=== PATIENT | male | born 1950 | race African-American/Black ===

== ENCOUNTER 2019-01-24 00:39 | Inpatient (IN) | payer OTHER ==
[~2019-01-24] VITALS: Ht 152.4 cm; Wt 67.2 kg
--- NOTE | 2019-01-24 00:49 | NUR ---
PT PLACED IN TRENDELENBERG AT THIS TIME FOR INCREASED CEREBRAL PERFUSION
--- NOTE | 2019-01-24 00:50 | NUR ---
PT PRESENTS TO ED WITH [facility] FROM [facility] FOR C/O HYPOGLYCEMIA. PER [facility] PT WAS FOUND AT FACILITY WITH BLOOD SUGAR OF 39 AFTER ONE GLUCAGON TX TRIPE FINISHER. [facility] PROVIDED 1 AMP D5 AND PT BLOOD GLUCOSE INCREASED TO 99. PER [facility] WITH INCREASE IN SUGAR THERE WAS NO CHANGE IN PT ORIENTATION. PT UPON ARRIVAL IS GCS OF 9 AND IS MUTE. PT HAS RAPID EYE MOVEMENT WITH NO VERBAL RESPONSE. PT HAS PUPILS THAT ARE REACTIVE. PT LUNG SOUNDS ARE DIMINISHED IN ALL [place] WITH NO COUGH. PT ABD IS ROUND AND FIRM UPON PALPATION. BOWEL SOUND HEARD IN ALL 4 QUADRANTS. PT PT HAS BL BKA FROM HX OF DIABETES. PT ALSO HAS DIAPER UPON ARRIVAL. SKIN IS DRY AND INTACT EXCEPT FOR WOUND TO COCCYX AREA THAT IS COVERED AT THIS TIME. PER [facility] THE AFIB IS NOT IN PT HX AND COULD POTENTIALLY BE NEW ONSET. PT ABLE TO MOVE ALL EXTREMETIES HOWEVER APPEARS LETHARGIC AND WEAK AT THIS TIME. PT CONNECTED TO FULL CM AND PULSE OX MONITORS. AWAITING MSE AT THIS TIME. PT IN FULL VIEW OF THE NURSES STATION.
--- NOTE | 2019-01-24 00:55 | NUR ---
DIALYSIS SHUNT NOTED TO PT R UPPER ARM
--- NOTE | 2019-01-24 01:01 | NUR ---
MD ISLAS AWAR OF PT CURRENT BP
--- NOTE | 2019-01-24 01:05 | NUR ---
AWARE PT MEETS SEPTIC PROTOCOL AT THIS TIME
--- NOTE | 2019-01-24 01:11 | NUR ---
BP PLACED ON R UPPER THIGH TO CHECK FOR ACCURACY. PT HAS RESTRICTED EXTREMITY TO R UPPER ARM DUE TO SHUNT PLACEMENT
--- NOTE | 2019-01-24 01:20 | NUR ---
MD AWARE OF PT CURRENT BP NO NEW ORDERS AT THIS TIME. FIRST LITER OF NS CURRENTLY INFUSING
--- NOTE | 2019-01-24 01:21 | NUR ---
LAB AT BEDSIDE FOR BLOOD DRAW
--- NOTE | 2019-01-24 01:50 | NUR ---
AT BEDSIDE AT THIS TIME
--- NOTE | 2019-01-24 01:51 | NUR ---
PT STATES THAT PT IS USUALLY AXO X4. PER PT USUALLY IS ABLE TO HOLD A CONVERSATION WITH HER HOWEVER WHILE SHE WAS WITH HIM AT [facility] SHE NOTICED THAT HE WAS WEAK AND SLOW TO RESPOND AND THAT IS WHY SHE TOLD THE NURSES TO GET HELP. STATES PT HAS NO CARDIAC HX EXCEPT CVA WITH R SIDED DEFICITS. PT STATES HE RECEIVED DIALYSIS ON TUESDAY AND EVERYTHING WENT NORMAL PER
--- NOTE | 2019-01-24 01:53 | NUR ---
PER MD ISLAS GIVE ZOFRAN 5 MIN PRIOR TO GIVING GLUCAGON FOR POTENTIAL ADVERSE REACTION OF VOMITING INDUCED BY GLUCAGON MD ISLAS STATES GIVING 2AMPS OF GLUCOAGON FOR POTENTIAL REVERSAL OF METOPROLOL OD
--- NOTE | 2019-01-24 01:55 | NUR ---
PER PT STILL MAKES SOME URINE AND VOIDS ON OCCASION HOWEVER VERY MINIMAL AND DECREASED
--- NOTE | 2019-01-24 01:58 | NUR ---
BLADDER SCANNER USED TO ASSESS AMOUNT OF URINE IN BLADDER PRIOR TO STRAIGHT CATH. BLADDER SCAN CURRENTLY REVEALED OVER 200 ML OF URINE IN BLADDER. PRIMARY RN AND MD AWARE.
[2019-01-24 02:00] LABS: PLATELET COUNT 192 x10^3mcL (130-400)
[2019-01-24 02:03] LABS: CALCIUM 7.7 mg/dL (8.5-10.1); CARBON DIOXIDE 21.9 mmol/L (21-32); POTASSIUM SERUM 3.2 mmol/L (3.5-5.1)
--- NOTE | 2019-01-24 02:05 | NUR ---
AWARE OF LATEST BP. NEW ORDERS RECEIVED SEE EMAR
[2019-01-24 02:07] LABS: BILIRUBIN TOTAL 3.6 mg/dL (0.20-1.00); TOTAL PROTEIN, SERUM 6.2 g/dL (6.4-8.2)
[2019-01-24 02:10] LABS: ALBUMIN 1.3 g/dL (3.4-5.0)
[2019-01-24 02:13] LABS: RED CELL DISTRIBUTION WIDTH 20.2 % (11.5-14.5)
--- NOTE | 2019-01-24 02:22 | NUR ---
PT APPEARS TO BE MORE ARROUSABLE AND RESPONDS WITH EYE MOVEMENT TO VERBAL STIMULI AND IS ABLE TO FOLLOW SMALL COMMANDS SUCH "PUT YOUR ARM STRAIGHT"
--- NOTE | 2019-01-24 02:25 | NUR ---
JANEL AWARE NO SECONDARY LINE ABLE TO BE ESTABLISHED AT THIS TIME. NOTIFIED NEED FOR SECONDARY LINE AND CONVERSATION WAS HAD ABOUT CENTRAL LINE OR EJ/IJ INSERTION. HOWEVER NO NEW ORDERS AT THIS TIME FOR CONTINIOUS IV ACCESS WERE STATED AT THIS TIME
[2019-01-24 02:29] LABS: BAND NEUTROPHIL 1 % (0-10); BASOPHIL 0 % (0-2); MONOCYTE 6 % (0-7); SEGMENTED NEUTROPHILS 84 % (37-75)
--- NOTE | 2019-01-24 02:29 | NUR ---
O2 TAKEN OFF PT AT THIS TIME FOR O2 SAT AT 98% RA
--- NOTE | 2019-01-24 02:30 | NUR ---
UNABLE TO DO SEPSIS FLUID RESUSCITATION DUE TO PT RENAL FAILURE AND DIALYSIS. MD AWARE.
[2019-01-24 02:32] LABS: PLATELET MORPHOLOGY PLATELETS NORMAL; rbc morphology (normal/abnorm) ABNORMAL (NORMAL)
[2019-01-24] MEDS ORDERED: ATORVASTATIN CA40 M1 PO (02:38)
--- NOTE | 2019-01-24 02:39 | NUR ---
REMOTE CONTROL MIRROR INSTALLER JANINE AWARE OF MD ORDERS OR LACK THERE OF
--- NOTE | 2019-01-24 02:39 | NUR ---
AWARE OF PT CURRENT BP. NO NEW ORDERS FOR CENTRAL LINE OR PRESSORS AT THIS TIME
[2019-01-24] MEDS ORDERED: HEPARIN SO5000 UNIT/ IJ (02:40)
--- NOTE | 2019-01-24 02:40 | NUR ---
PLEASE ENTER FULL NAMES OF STUDENT/RN Documentation completed by (Student Nurse): TIERA MCCULLOUGH Documentation reviewed by (Registered Nurse): KARAN CARDOSO
[2019-01-24] MEDS ORDERED: HYDRALAZINE HCL25 MG PO ×2 (02:41→02:49)
[2019-01-24] MEDS ORDERED: TOPROL XL25 MG PO (02:41)
[2019-01-24] MEDS ORDERED: MORPHINE SU2 MG/1 M1 IVP (02:42)
[2019-01-24] MEDS ORDERED: NAR4I IVP (02:43)
--- NOTE | 2019-01-24 02:43 | NUR ---
AWARE URINE IS TOO DIRTY TO READ ON MACHINE IN ER DESPITE MULTIPLE EFFORTS. URINE SENT TO LAB FOR UA AND URINE CULTURE
--- NOTE | 2019-01-24 02:43 | NUR ---
STATES TO "CONTINUE WITH ALBUMIN AND WATCH BP". AWARE PT HAS BEEN HERE FOR APPROX 2 HOURS AND THERE HAS BEEN NO IMPROVEMENT IN BP EVEN AFTER 1L OF NS COMPLETE AND ALBUMIN INFUSING
[2019-01-24] MEDS ORDERED: PROTONIX40 MG PO (02:44)
[2019-01-24] MEDS ORDERED: TYLENOL PO (02:45)
[2019-01-24] MEDS ORDERED: ZOF4 IVP (02:45)
[2019-01-24] MEDS ORDERED: AMERINET CHOICE1 PD2 IV (02:46)
--- NOTE | 2019-01-24 02:46 | NUR ---
PT SEEN TO BE USING ARMS TO SIGNAL THAT HE WANTS A PILLOW.
[2019-01-24] MEDS ORDERED: OPTIMUM AC500 Millio PO (02:47)
[2019-01-24] MEDS ORDERED: NEXIUM40 MG PO (02:48)
[2019-01-24] MEDS ORDERED: FERROUS SULFAT325 M2 PO (02:48)
[2019-01-24] MEDS ORDERED: GABAPENTIN100 M2 PO (02:49)
[2019-01-24] MEDS ORDERED: ATRNS6 INH (02:50)
--- NOTE | 2019-01-24 02:51 | NUR ---
MD STATES TO OPEN ALBUMIN AT W.O. RATE AT THIS TIME ALBUMIN W.O AT THIS TIME
[2019-01-24] MEDS ORDERED: TUMS E-X750 MG PO (02:52)
[2019-01-24] MEDS ORDERED: METOCLOPRAM5 MG/5 M1 PO (02:52)
[2019-01-24] MEDS ORDERED: RENA-VITE RX1 TAB PO (02:53)
--- NOTE | 2019-01-24 02:58 | NUR ---
ALBUMIN FINISHED AND ROCEPHIN BEGAN AT THIS TIME IN LAC IV
--- NOTE | 2019-01-24 03:07 | NUR ---
PHOTOGRAPH OF WOUND ON COCCYX PLACED IN PT CHART AT THIS TIME
--- NOTE | 2019-01-24 03:10 | NUR ---
PT CURRENT TEMP IS 96.1 RECTAL. MD AWARE AT THIS TIME
--- NOTE | 2019-01-24 03:18 | NUR ---
AWARE OF TEMP AND STATES TO PUT PT ON GAYMAR FOR THERAPEUTIC REWARMING
--- NOTE | 2019-01-24 03:18 | NUR ---
MD AT BEDSIDE FOR CENTRAL LINE INSERTION SIGNED CONSENT AND 2 RN CHECKED BY ME AND JOSELINE Lee RN PLACED IN PT CHART
--- NOTE | 2019-01-24 03:32 | NUR ---
CENTRAL LINE PLACED TO LIJ AT THIS TIME
--- NOTE | 2019-01-24 03:36 | NUR ---
X RAY AT BEDSIDE FOR CENTRAL LINE PLACEMENT CONFIRMATION
--- NOTE | 2019-01-24 03:37 | NUR ---
PT TOLERATED PROCEDURE WELL
--- NOTE | 2019-01-24 03:48 | NUR ---
CONFIRMED CENTRAL LINE PLACEMENT AND STATES OKAY TO USE AT THIS TIME
[2019-01-24 03:59] LABS: UA SPECIFIC GRAVITY 1.015 (1.005-1.035); microscopic required? YES; urine erythrocyte 3+ (NEGATIVE)
--- NOTE | 2019-01-24 04:01 | NUR ---
LEVO TITRATED UP TO 4MCG/MIN AT THIS TIME RUNNING AT 15ML/HR
--- NOTE | 2019-01-24 04:06 | NUR ---
LEVO TITRATED TO 6MCG/MIN AND 22.5ML/HR TO REACH GOAL OF MAP OF 65
--- NOTE | 2019-01-24 04:06 | NUR ---
NO CHANGE IN PT MENTATION AT THIS TIME
--- NOTE | 2019-01-24 04:06 | NUR ---
CONCESTED COUGH HEARD AT THIS TIME
--- NOTE | 2019-01-24 04:11 | NUR ---
LEVO TITRATED TO 8MCG/MIN RUNNING AT 30ML/HR. AWARE
--- NOTE | 2019-01-24 04:16 | NUR ---
LEVO TITRATED UP TO 10MCG AND 37.5ML/HR FOR PT CURRENT BP SEE VITALS
--- NOTE | 2019-01-24 04:20 | NUR ---
MD AWARE PT NEED MAINTENANCE FLUIDS TO RUN WITH LEVO AT THIS TIME
--- NOTE | 2019-01-24 04:21 | NUR ---
LEVO TITRATED TO 12MCG/MIN AT 45ML/HR FOR PT CURRENT BP
--- NOTE | 2019-01-24 04:26 | NUR ---
LEVO TITRATED TO 14MCG/MIN AND RUNNING AT 52.5ML/HR FOR GOAL OF MAP OF 65
--- NOTE | 2019-01-24 04:31 | NUR ---
LEVO TITRATED TO 16MCG AT 60ML/HR AT THIS TIME
--- NOTE | 2019-01-24 04:35 | NUR ---
WILL MAINTAIN LEVO AT 16MCG/MIN FOR MAP >65 AT THIS TIME. WILL CONTINUE TO MONITOR VITALS. GAYMAR WITH RECTAL PROBE STILL IN PLACE AT BEDSIDE PT APPEARS TO BE RESTING WITH EYES CLOSED AND E/U CHEST RISE NOTED. NAD AT THIS TIME. MD AWARE PT BP AT THIS TIME. NO NEW ORDERS
--- NOTE | 2019-01-24 05:52 | NUR ---
PT REPOSITION HIMSELF AND IS RESTING COMFORTABLY
--- NOTE | 2019-01-24 05:54 | NUR ---
RESIDENT IS CURRENTLY ASSESSING PT.
--- NOTE | 2019-01-24 06:01 | NUR ---
NO CHANGE IN PT MENTATION AT THIS TIME. PLACED PILLOWS UNDERNEATH R SIDE OF PT TO RELIEVE PRESSURE AND DECREASE RISK OF PRESSURE SORES SO PT LYING W/R SIDE IN AIR AND LEFT SIDE DOWN AT THIS TIME. STILL AT BEDSIDE. NAD AT THIS TIME
--- NOTE | 2019-01-24 06:25 | NUR ---
PER MD TO TITRATE LEVO DOWN TO SEE HOW PT TOLERATES. TITRATING LEVO DOWN TO 14MCG/MIN AT THIS TIME.
--- NOTE | 2019-01-24 06:54 | NUR ---
MD VILA AWARE PT UNABLE TO SWALLOW PO POTASSIUM AT THIS TIME. SHE STATES SHE WILL TELL ORDERING MD AND HAVE THEM FIX THE ORDER. SO PO POTASSIUM NOT GIVEN AT THIS TIME
--- NOTE | 2019-01-24 07:43 | NUR ---
REPORT GIVEN TO BILL LLAMAS. ALL QUESTIONS AND CONCERNS ADDRESSED AT THIS TIME.
--- NOTE | 2019-01-24 07:54 | NUR ---
RECEIVED THE PATIENT FROM ED VIA GUERNEY; THE PATIENT WAS TRANSFERRED TO ICU BED AND HOOKED UP TO TELE MONITOR, WHICH SHOWS AFIB WITH EPISODES OF SINUS TACHYCARDIA. THE PATIENT LETHARGIC, MOANING TO TACTILE STIMULI. CVC NOTED AT J. ANOTHER IV SITE TO LAC. AV SHUNT TO RIGHT ARM WITH BRUIT AND THRILL AND COVERED WITH DRESSING. RUQ DRAINAGE TUBE IN PLACE WITH GREEN OUTPUT IN BAG. BURGER CATH IN PLACE WITH NO URINE OUTPUT NOTED. PATIENT WITH LEFT AKA AND RIGHT BKA. PATIENT POSITIONED COMFORTABLY IN BED. HEAD OF BED ELEVATED. EXTREMITIES OFFLOADED. CALL LIGHT WITHIN REACH. SIDE RAILS UP X3. BED IS AT LOWEST POSITION. THE IS AT BEDSIDE AND PROVIDING THE PATIENT'S INFORMATION.
[2019-01-24 08:16] VITALS: BP 100/55
--- NOTE | 2019-01-24 08:35 | NUR ---
BP 118/58 AND MAP 78; LEVOPHED TITRATED FROM 14MCG/MIN DOWN TO 12MCG/MIN.
[2019-01-24 08:38] LABS: MAGNESIUM 1.6 mg/dL (1.8-2.4)
--- NOTE | 2019-01-24 08:43 | NUR ---
PATIENT'S GENEVA AT BEDSIDE ASSISTING PRIMARY RN WITH OBTAINING PATIENT INFORMATION. CONSENT SIGNED BY TO OBTAIN MEDICAL RECORDS FROM [facility] AND FOR BLOOD TRANSFUSION. BLOOD TRANSFUSION EDUCATION PROVIDED TO . ALL QUESTIONS AND CONCERNS ADDRESSED.
[2019-01-24 08:48] LABS: CHOLESTEROL/HDL RATIO 14.5
--- NOTE | 2019-01-24 09:01 | NUR ---
BP 118/60 AND MAP 79; LEVOPHED TITRATED FROM 12MCG/MIN DOWN TO 10MCG/MIN.
--- NOTE | 2019-01-24 09:35 | NUR ---
DR. HUFF IS AT BEDSIDE TO SEE THE PATIENT AND TALKING TO THE .
--- NOTE | 2019-01-24 09:46 | NUR ---
IV SITE AT LAC FOUND DISLODGED WITH TIP INTACT. THE SITE WITH NO BLEEDING. DRESSING IS IN PLACE.
--- NOTE | 2019-01-24 09:55 | NUR ---
DR HUFF AT BEDSIDE TO SPEAK WITH PATIENT'S GENEVA. POC DISCUSSED INCLUDING PATIENT'S NEED FOR ERCP AND CHOLANGIOGRAM. ALL QUESTIONS AND CONCERNS ADDRESSED BY DR HUFF. CONSENT OBTAINED AND WITNESSED BY MYSELF.
--- NOTE | 2019-01-24 10:03 | NUR ---
BP 124/62, AND MAP 75; LEVOPHED TITRATED FROM 10MCG/MIN DOWN TO 8MCG/MIN.
--- NOTE | 2019-01-24 10:46 | NUR ---
BP 124/66, MAP 79; LEVOPHED TITRATED FROM 8MCG/MIN DOWN TO 6MCG/MIN.
[2019-01-24 11:00] VITALS: BP 118/55
--- NOTE | 2019-01-24 11:47 | NUR ---
BP 118/52, MAP 80; LEVOPHED TITRATED FROM 6MCG/MIN DOWN TO 4MCG/MIN.
--- NOTE | 2019-01-24 12:05 | NUR ---
ATTEMPTED TO FEED PATIENT LUNCH TRAY SERVED. PATIENT REFUSED BY CLENCHING MOUTH CLOSED AND TURNING HEAD FROM SIDE TO SIDE WHEN ATTEMPTING TO FEED HIM. DR JIMENEZ ON UNIT AND MADE AWARE.
--- NOTE | 2019-01-24 12:17 | NUR ---
DR CLAY AT BEDSIDE TO ASSESS PATIENT. UPDATES PROVIDED BY NURSING.
--- NOTE | 2019-01-24 12:40 | NUR ---
DR. Korina FRANCISCO IS AT BEDSIDE EXAMING THE PATIENT.
--- NOTE | 2019-01-24 12:57 | NUR ---
SPOKE WITH DR JIMENEZ AND INFORMED HER PATIENT IS NOT EATING OR DRINKING. ORDER RECEIVED FOR D5NS TO KEEP BLOOD SUGARS ELEVATED. WILL CARRY OUT ORDERS/
[2019-01-24 13:18] LABS: BILIRUBIN DIRECT 2.76 mg/dL (0.0-0.2); BILIRUBIN TOTAL 3.6 mg/dL (0.20-1.00); TOTAL PROTEIN, SERUM 6.5 g/dL (6.4-8.2)
--- NOTE | 2019-01-24 13:26 | NUR ---
BURGER CATH REMOVED WITH TIP INTACT BY THE CHARGE NURSE.
[2019-01-24 13:28] LABS: ALBUMIN 1.3 g/dL (3.4-5.0)
--- NOTE | 2019-01-24 13:30 | NUR ---
AT 1255: FRESH FROZEN PLASMA 1 UNIT INITIATED WITH VS: TEMP 97.6, HR 97, BP 101/41, RR 25 AND O2 SAT 98%. AT 1310: RECHECKED VS AFTER 15 MINUTES OF FFP STARTED WITH TEMP 97.6, HR 97, BP 109/61, RR 21, O2 SAT 100%. NO ADVERSE REACTION NOTED. CONTINUE TRANSFUSION. AT 1330: FFP COMPLETED. VS: TEMP 97.8, HR 92, BP 103/54, HR 21, AND O2 SAT 100%. NO ADVERSE REACTION NOTED.
[2019-01-24 15:00] VITALS: BP 109/44
--- NOTE | 2019-01-24 15:32 | NUR ---
BP 110/59, AND MAP 84; LEVOPHED TITRATED FROM 4MCG/MIN DOWN TO 2MCG/MIN.
--- NOTE | 2019-01-24 16:46 | NUR ---
BP 95/43, AND MAP 60; LEVOPHED TITRATED FROM 2MCG/MIN UP TO 4MCG/MIN.
--- NOTE | 2019-01-24 17:33 | NUR ---
BP 116/59 AND MAP 78; LEVOPHED TITRATED FROM 4MCG/MIN DOWN TO 3MCG/MIN.
--- NOTE | 2019-01-24 17:45 | NUR ---
AT 1515, PRBC 1 UNIT WAS INITIATED WITH VS TEMP 98.0, HR 92, BP 109/44, RR 15, O2 SAT 100%. AT 1530, RECHECKED VS AFTER 15 MINUTES OF INITATING BLOOD TRANSFUIONG: TEMP 97.8, HR 92, BP 110/59, HR 21, O2 SAT 100%. NO ADVERSE REACTION NOTED. CONTINUE BLOOD TRANSFUION. AT 1745, BLOOD TRANSFUSION COMPLETED WITH VS: TEMP 98.3, HR 91, BP 107/54, RR 18, AND O2 SAT 100%. NO ADVERSE REACTION NOTED.
--- NOTE | 2019-01-24 18:45 | NUR ---
THE RUQ DRAINAGE TUBE WAS EMPTIED WITH 50ML OF GREEN OUTPUT. PATIENT IS RESTING IN BED WITH NO RESTLESSNESS. ISOGEL MATTRESS SET UP FOR THE PATIENT.
--- NOTE | 2019-01-24 19:19 | NUR ---
REPORT GIVEN TO BERRY ALLEN RN.
--- NOTE | 2019-01-24 19:20 | NUR ---
REC'D REPORT FROM MARYJO RN TO ASSUME CARE. PT SEEN AWAKE, UNABLE TO MAKE NEEDS KNOWN. PT VERBALLY ONLY SAYS "HELLO" AND "OUCH" WHEN TOUCHED. JAUNDICE TO HAROON EYES NOTED. PERRLA NOTED. EENT FREE OF DISCHARGE. LIJ CVC INTACT, PORTS PATENT, DSG CDI. NO JVD NOTED. RESPS E/U ON ROOM AIR. CHEST RISE EQUAL AND SYMMETRICAL. LUNG SOUNDS CTA. PARTY DEMONSTRATOR IN PLACE SHOWING NSR WITH HR 97, BP 107/53 MAP 66. CHEST WALL STABLE. PULSES PALPABLE TO BUE BUT WEAK. CAP REFILL < 3 SECS. TRACE EDEMA TO LUE. IVF D5 MS INFUSING @ 30ML/HR. ABD DISTENDED AND SOFT. GALLBLADDER DRAIN NOTED TO RUQ OF ABD, DRAINING VIA GRAVITY GREEN LIQUID. BOWEL SOUNDS HYPOACTIVE. PT ANURIC. NO SCROTAL EDEMA NOTED. PT ON HEMODIALYSIS T-TH-SAT. [place] AV SHUNT IN PLACE WITH +BRUIT/THRILL, NO ACTIVE BLEEDING NOTED. PT BEDOUND. R BKA AND L AKA NOTED, ELEVATED ON PILLOWS. TURNED AND REPOSITIONED Q2H FOR PRESSURE RELIEF. FALL PRECUATIONS APPLIED AND MAINTAINTED. WILL CONTINUE TO MONITOR.
[2019-01-24 19:30] VITALS: BP 107/53
--- NOTE | 2019-01-24 20:50 | NUR ---
PT PULLED OFF CENTRAL LINE DSG. CENTRAL LINE REMAINS IN PLACE. CENTRAL LINE DSG PLACED USING ASEPTIC TECHNIQUE.
--- NOTE | 2019-01-24 21:15 | NUR ---
BP 138/61 MAP 86, LEVOPHED TITRATED TO 2 MCG/MIN.
--- NOTE | 2019-01-24 22:30 | NUR ---
BP 120/65 MAP 82, LEVOPHED TITRATED TO 1 MCG/MIN.
--- NOTE | 2019-01-24 23:05 | NUR ---
BP 122/59 MAP 77, LEVOPHED TURNED OFF.
[2019-01-24 23:28] VITALS: BP 122/59
[2019-01-25 01:31] LABS: IRON 69 ug/dL (65-170)
[2019-01-25 01:35] LABS: TOTAL IRON BINDING CAPACITY 44 ug/dL (250-450)
--- NOTE | 2019-01-25 02:30 | NUR ---
PT SEEN PULLING ON LIJ CENTRAL LINE, PT REDIRECTED AND REMINDED NOT TO PULL.
[2019-01-25 03:01] VITALS: BP 105/52
--- NOTE | 2019-01-25 03:15 | NUR ---
PT PULLED OFF ALL CARDIAC LEADS, PT REDIRECTED AT THIS TIME, ROOM NEAR NURSING STATION FOR CLOSE MONITORING.
[2019-01-25 05:37] LABS: BASOPHIL % 0.3 % (0-2); PLATELET COUNT 143 x10^3mcL (130-400); RED CELL DISTRIBUTION WIDTH 19.3 % (11.5-14.5)
[2019-01-25 05:49] LABS: CALCIUM 8.1 mg/dL (8.5-10.1); CARBON DIOXIDE 27.2 mmol/L (21-32); CREATININE SERUM 3.6 mg/dL (0.7-1.3); PHOSPHOROUS 2.4 mg/dL (2.5-4.9); POTASSIUM SERUM 3.1 mmol/L (3.5-5.1)
--- NOTE | 2019-01-25 05:54 | NUR ---
TOTAL BED BATH PROVIDED, LINENS CHANGED. NO BM OR URINE NOTED. REPOSITIONED AT THIS TIME.
--- NOTE | 2019-01-25 06:13 | NUR ---
DR MATAMOROS (NEPHRO) AT BEDSIDE, UPDATED ON STATUS, DR MATAMOROS STATES ORDER PLACED FOR 1-2 L NS DURING DIALYSIS IF NEEDED.
--- NOTE | 2019-01-25 07:01 | NUR ---
MELINDA HEMODIALYSIS NURSE AT BEDSIDE SETTING UP.
[2019-01-25 07:25] VITALS: BP 112/58
--- NOTE | 2019-01-25 07:25 | NUR ---
PATIENT AWAKE BUT ORIENTED TO SELF ONLY AT THIS TIME WITH GARBLED WORDS. PATIENT IS ABLE TO FOLLOW SIMPLE COMMANDS AND MAKES NEEDS KNOWN. CVC TO LIJ WITH DRESSING INTACT. D5 NS IS INFUSING AT 30ML/HR. TELE # 5 SHOWS NORMAL SINUS RHYTHMS WITH OCCASIONAL PVC'S. DRAINAGE CATH FROM RUQ WITH SCANT AMOUNT OF GREEN OUPUT. AV SHUNT TO [place] WITH BRUIT AND THRILL. PATIENT IS ON ISOGEL MATTRESS. CALL LIGHT WITHIN REACH. SIDE RAILS UP X3. BED IS AT LOWEST POSITION.
--- NOTE | 2019-01-25 07:30 | NUR ---
HEMODIALYSIS NURSE COMES TO BEDSIDE FOR HD. LAB RESULTS AND 2 BAGS OF 1000ML NS PROVIDED TO HD NURSE.
--- NOTE | 2019-01-25 08:25 | NUR ---
DR. JIMENEZ IS AT BEDSIDE SEEING THE PATIENT.
--- NOTE | 2019-01-25 08:40 | NUR ---
DR. HUFF IS AT BEDSIDE SEEING THE PATIENT.
--- NOTE | 2019-01-25 10:20 | NUR ---
DR TSNAG AND RESIDENTS ROUNDING AT THIS TIME. POC DISCUSSED WITH GENEVA WITH ALL QUESTIONS AND CONCERNS ADDRESSED.
--- NOTE | 2019-01-25 10:32 | NUR ---
HEMODIALYSIS COMPLETED WITH 2L OUTPUT REPORTED BY HEMODIALYSIS NURSE.
--- NOTE | 2019-01-25 10:45 | NUR ---
PATIENT IS TAKEN TO RAD DEPT FOR T-TUBE CHOLEANGIOGRAM. PATIENT ACCOMPANIED BY DILIP JONES RN AND RAD STAFF.
--- NOTE | 2019-01-25 11:20 | NUR ---
PATIENT CAME BACK TO THE ROOM S/P T-TUBE CHOLEANGIOGRAM.
[2019-01-25 11:25] VITALS: BP 123/54
--- NOTE | 2019-01-25 11:30 | NUR ---
WOUND CARE NURSE IS AT BEDSIDE PROVIDING WOUND CARE TO THE PATIENT.
[2019-01-25 11:52] VITALS: Ht 152.4 cm; Wt 67.2 kg
--- NOTE | 2019-01-25 12:05 | NUR ---
WOUND CARE EVALUATION NOTE: REASON FOR EVALUATION: LOW THAO SCORE AND SACRALCOCCYX WOUND SKIN ASSESSMENT DONE WITH PRIMARY RN WITH THIS 54 Y/O MALE PT ADMITTED FROM SN[facility] [place] [facility] [place] DX FRANCIS. PAST MEDICAL HX INCLUDES HTN, ESRD on HD, HTN, CHRONIC LIVER CIRRHOSIS, DM, PRESSURE ULCER TO SACRALCOCCYX AND S/P BILIARY STENT AND BILIARY DRAIN A WEEK AGO. ALL ABOVE INFORMATION OBTAINED FROM ADMISSION H&P AND WHO IS AAX4. PT IS AWAKE. SKIN IS WARM AND DRY, LEFT BKA AND RIGHT AKA, STUMPS HEALED SCARS. INCONTINENT OF BOWEL. PLAN OF CARE DISCUSSED WITH PRIMARY RN AND , ALL QUESTION ANSWERED, VERBALIZED UNDERSTANDING. INTEGUMENTARY: -ABDOMEN DISTENTED, TENDER TO TOUCH. RIGHT LATERAL ABD. WITH BILIARY DRAIN SUTURE IN PLACE, SECURED AND FUNCTIONING. SITE IS CLEAN -INCOTINENT ASSOCIATE DERMATITIS (IAD) TO: B/L GROINS EXTENDED TO SCROTAL DAMON, RED WITH SKIN INTACT -PRESSURE ULCER STAGE 4 TO SACRALCOCCYX AREA, 4X1.2X0.5CM WOUND BED 100% GRANULATING TISSUE, SMALL AMOUNT SEROSANGENOUS DRAINAGE, WITH UNDERMINING AT 3 O'CLOCK 1 CM DEEP,PERIWOUND SKIN DENUDED 6X6CM. RECOMMENDATIONS: -KEEP SKIN DRY AND CLEAN AT ALL TIMES, PLEASE CHECK Q2H AND PRN FOR INCONTINENCY OF BOWEL AND BLADDER. -CHANGE RIGHT LATERAL ABD. DRAIN SITE DRESSING PRN IF SOILING -APPLY HYDRAGUARD TO R/L GROINS EXTENDED TO SCROTAL AREA BID AND PRN IF SOILING - CLEANSE SACRALCOCCYX WOUND WITH NS, PACK WITH THERAHONEY GEL WITH ADAPTIC DRESSING, APPLY Z-GUARD TO MITCHELL-WOUND COVER WITH OPTICFOAM DRESSING 3XWEEK ON T-TH- SAT AND PRN IF SOILING -OFFLOAD BILATERAL THIGHS BY PLACING PILLOWS UNDER CALVES UNLESS OTHERWISE CONTRAINDICATED -PRESSURE REDISTRIBUTION SURFACE THERAPY -TURN AND REPOSITION Q2H, OFFLOAD SACRALCOCCYX AND BUTTOCKS BY TURNING RIGHT AND LEFT -CONTINUE TO FOLLOW RD RECOMMENDATIONS ALL ABOVE RECOMMENDATIONS DISCUSSED WITH PRIMARY RN. WILL FOLLOW UP PT Q7-10 DAYS. PLEASE CONTACT WOUND CARE NURSE FOR ANY QUESTION AND CHANGE OF WOUND CONDITION.
--- NOTE | 2019-01-25 12:10 | NUR ---
WOUND CARE EVALUATION NOTE: REASON FOR EVALUATION: LOW THAO SCORE AND SACRALCOCCYX WOUND SKIN ASSESSMENT DONE WITH PRIMARY RN WITH THIS 68 Y/O MALE PT ADMITTED FROM SNF TO [facility] [place] WITH INITIAL DX AMS. PAST MEDICAL HX INCLUDES HTN, ESRD on HD, HTN, CHRONIC LIVER CIRRHOSIS, DM, PRESSURE ULCER TO SACRALCOCCYX AND S/P BILIARY STENT AND BILIARY DRAIN A WEEK AGO. ALL ABOVE INFORMATION OBTAINED FROM ADMISSION H&P AND WHO IS AAX4. PT IS AWAKE. SKIN IS WARM AND DRY, LEFT BKA AND RIGHT AKA, STUMPS HEALED SCARS. INCONTINENT OF BOWEL. PLAN OF CARE DISCUSSED WITH PRIMARY RN AND , ALL QUESTION ANSWERED, VERBALIZED UNDERSTANDING. INTEGUMENTARY: -ABDOMEN DISTENTED, TENDER TO TOUCH. RIGHT LATERAL ABD. WITH BILIARY DRAIN SUTURE IN PLACE, SECURED AND FUNCTIONING. SITE IS CLEAN -INCOTINENT ASSOCIATE DERMATITIS (IAD) TO: B/L GROINS EXTENDED TO SCROTAL DAMON, RED WITH SKIN INTACT -PRESSURE ULCER STAGE 4 TO SACRALCOCCYX AREA, 4X1.2X0.5CM WOUND BED 100% GRANULATING TISSUE, SMALL AMOUNT SEROSANGENOUS DRAINAGE, WITH UNDERMINING AT 3 O'CLOCK 1 CM DEEP,PERIWOUND SKIN DENUDED 6X6CM. RECOMMENDATIONS: -KEEP SKIN DRY AND CLEAN AT ALL TIMES, PLEASE CHECK Q2H AND PRN FOR INCONTINENCY OF BOWEL AND BLADDER. -CHANGE RIGHT LATERAL ABD. DRAIN SITE DRESSING PRN IF SOILING -APPLY HYDRAGUARD TO R/L GROINS EXTENDED TO SCROTAL AREA BID AND PRN IF SOILING -CLEANSE SACRALCOCCYX WOUND WITH NS, PACK WITH THERAHONEY GEL WITH ADAPTIC DRESSING, APPLY Z-GUARD TO MITCHELL-WOUND COVER WITH OPTICFOAM DRESSING 3X WEEK ON T-TH- SAT AND PRN IF SOILING -OFFLOAD BILATERAL THIGHS BY PLACING PILLOWS UNDER CALVES UNLESS OTHERWISE CONTRAINDICATED -PRESSURE REDISTRIBUTION SURFACE THERAPY -TURN AND REPOSITION Q2H, OFFLOAD SACRALCOCCYX AND BUTTOCKS BY TURNING RIGHT AND LEFT -CONTINUE TO FOLLOW RD RECOMMENDATIONS ALL ABOVE RECOMMENDATIONS DISCUSSED WITH PRIMARY RN. WILL FOLLOW UP PT Q7-10 DAYS. PLEASE CONTACT WOUND CARE NURSE FOR ANY QUESTION AND CHANGE OF WOUND CONDITION.
[2019-01-25 15:45] VITALS: BP 94/54
--- NOTE | 2019-01-25 18:26 | NUR ---
PATIENT IS CLEANSED AND CHANGED GOWN. PATIENT IS RESTING IN BED WITHOUT DISTRESS NOTED AT THIS TIME.
--- NOTE | 2019-01-25 19:27 | NUR ---
REPORT GIVEN TO BERRY HINDS RN. CONCERNS ADDRESSED.
--- NOTE | 2019-01-25 19:33 | NUR ---
RECEIVED PATIENT IN BED AWAKE ,ORIENTED TO SELF INLY, ABLE TO VERBALIZED NEEDS WITH DGARBLED SPEECH. BREATHING EASY AND NONLABOR SATTING AT 98% RA. TRACED EDEMA NOTED TO LUE. DRAINAGE TUBE TO LUQ INPLACE WITH SMALL AMOUNT OF BILE COLOR OUTPUT. IV TO LIJ INFUSING WELL WITH D5NS AT 30ML/HR. [place] AV SHUNT INPLACE WITH GOOD BRUIT AND THRILL. WILL CONTINUE TO MONITOR.
[2019-01-25 21:10] VITALS: BP 110/55
--- NOTE | 2019-01-25 22:40 | NUR ---
AWAKE THIS TIME ABLE TO MAKE NEEDS KNOWN. NO DISTRESS NOTED.
--- NOTE | 2019-01-25 23:37 | NUR ---
PATIENT APPEAR TO BE SLEEPING WITH NO SIGN OF ACUTE DISTRESS. BREATHING EASY AND NONLABOR. NO INDICATION OF PAIN AND DISCOMFORT NOTED. KEPT ON ISOLATION PRECAUTION.
[2019-01-25 23:57] VITALS: BP 101/55
[2019-01-26] VITALS (7 sets, daily range): BP systolic 102–145; BP diastolic 52–76
--- NOTE | 2019-01-26 02:42 | NUR ---
AWAKE PATIENT ALWAYS PULLING MONITOR LEADS. NO SIGN OF DISTRESS NOTED.
[2019-01-26 05:13] LABS: PLATELET COUNT 130 x10^3mcL (130-400)
[2019-01-26 05:24] LABS: RED CELL DISTRIBUTION WIDTH 20.4 % (11.5-14.5)
[2019-01-26 05:26] LABS: CALCIUM 8.1 mg/dL (8.5-10.1); CARBON DIOXIDE 31.8 mmol/L (21-32); CREATININE SERUM 2.7 mg/dL (0.7-1.3); PHOSPHOROUS 1.9 mg/dL (2.5-4.9)
--- NOTE | 2019-01-26 05:38 | NUR ---
CHECKED AT INTERVALS FOR NEEDS AND SAFETY. REPOSITIONED FOR COMFORT. KEPT ON NPO FOR POSSIBLE PROCEDURE TODAY (ERCP). ALL NEEDS ATTENDED.
[2019-01-26 05:40] LABS: POTASSIUM SERUM 2.6 mmol/L (3.5-5.1)
--- NOTE | 2019-01-26 05:55 | NUR ---
POTASSIUM LEVEL-2.6 DR BRUNER MADE AWARE WITH NEW ORDERS TO CARRY OUT.
--- NOTE | 2019-01-26 06:02 | NUR ---
WITH NEW ORDER FROM Murray MOONEY TO BE INFUSE, AWAITING FOR PHARMACY TO BRING.
--- NOTE | 2019-01-26 06:46 | NUR ---
Murray MACKENZIE INFUSING THIS TIME FOR K-2.6. WILL ENDORSE CONTINOUS CARE TO AM SHIFT.
--- NOTE | 2019-01-26 07:30 | NUR ---
RECEIVED PT RESTING IN BED. AAOX1 TO SELF ONLY, GARBLED SPEECH. UNABLE TO FOLLOW COMMANDS AT THIS TIME. RESP EVEN AND UNLABORED ON RA. ST ON TELE #5, HR 105. NO PAIN NOTED. T-TUBE DRAIN IN PLACE TO RUQ WITH GREEN OUTPUT. HYPOACTIVE BOWEL SOUNDS, ABD ROUND, SLIGHTLY DISTENDED. [place] AV SHUNT, BRUIT/THRILL PRESENT. ANURIC. ON HD T//S. LIJ TLC, DRESSING C/D/I. L AKA AND R BKA. ON ISOGEL MATTRESS. HOB SLIGHTLY ELEVATED. NPO EXCEPT MEDS. WILL CONTINUE TO MONITOR.
--- NOTE | 2019-01-26 10:33 | NUR ---
RECIEVED CALL FROM DR. HUFF REGARDING PATIENT'S STATUS. UPDATES PROVIDED AND POC DISCUSSED. PLAN FOR ERCP IN OR TODAY SOMETIME LATER, NO SCHEDULE TIME OF NOW. ORDER TO GIVE VITAMIN K 10 MG IV ONCE NOW. WILL FOLLOW AND CONTINUE TO MONITOR.
--- NOTE | 2019-01-26 11:45 | NUR ---
SHIFT REASSESSMENT DONE. PT AWAKE, AAOX1 TO SELF. GARBLED SPEECH. FOLLOWS SIMPLE COMMANDS AT TIMES. RESP EVEN AND UNLABORED ON RA. NO PAIN NOTED. 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 NPO EXCEPT MEDS. HYPOACTIVE BOWEL SOUNDS. ABD SOFT, SLIGHTLY DISTENDED, SOFT. T-TUBE DRAIN WITH GREEN OUTPUT. [place] AV SHUNT, BRUIT/THRILL PRESENT. L AKA AND R BKA. PT REPOSITIONED Q2H. HOB ELEVATED. CONTACT ISOLATION. FALL PRECAUTIONS. WILL CONTINUE TO MONITOR.
--- NOTE | 2019-01-26 12:37 | NUR ---
FFP INFUSION STARTED. VERIFIED WITH ELIA PHELPS RN. NO ADVERSE REACTIONS NOTED AT THIS TIME. VS: TEMP 99.3, RR 20, HR 110, BP 111/64, O2 SAT 98%. WILL CONTINUE TO MONITOR.
--- NOTE | 2019-01-26 12:53 | NUR ---
1. Recommend CCHO, renal diet when medically appropriate/ tolerated. 2. Recommend ONS [place] BID for poor PO intake. Paged Dr. Fletcher, waiting for call back.
--- NOTE | 2019-01-26 12:53 | NUR ---
Initial Nutrition Assessment: IC06/14 AMBAR BALLESTEROS IA HR Dx: Sepsis, UTI PMHx: ESRD on HD on TTS, HTN, chronic liver disease, DM, recent hospitalization for UTI, CVA PSHx: B/L AKA Labs: K 2.6L, CREAT 2.7H, P 1.9L, TG 237H, MG 1.6L, AST 541H, ALT 128H, WBC 15.4H Meds: Colace, D 50%, Humulin, morphine, vancomycin, zofran Diet: NPO (for ERCP), (01/25) full liquid diet, (01/24) puree diet, (01/24) 0% PO intake since admission: (01/25) lunch 5%, breakfast, dinner 0% Ht: 152.4 cm (60") Wt: 67.2 kg (148#) BMI: 28.9 kg/m2 Bed scale: 148# IBW: 106# (48 kg) %IBW: 139 UBW: unable to access Age: 68/M Food Allergies: NKFA Skin: ulcer to sacrum Garrick: 12 Edema: trace L hand GI: tube to RLQ draining green output Last BM: 01/22 Per H&P, Pt is a 68 yo male with PMH of ESRD on HD on TTS, HTN, chronic liver disease, DM, recent hospitalization for UTI was brought in to the ED from [facility] by ambulance for evaluation of altered level of consciousness. RD Note (01/26): Patient was sleeping. Per RN Sara, pt does not have any N/V/D at this time. Patient is NPO for ERCP. Patient has poor PO. Problem with: N/V/D/C: none per RN Problems with: Chewing: Swallowing: yes Current appetite: unable to access Recent wt change: unable to access %wt change: n/a Vitamin/Supplement use: unable to access Special diet at home: unable to access Physical activity: unable to access Nutrition education given: not possible at this time Food-drug interactions: none Education given: n/a Estimated Nutritional Needs Based on adjusted body weight (53 kg) Energy: 3755-0444 kcal/day (30-35 kcal/kg for HD, wounds) Protein: 64-74 g/day (1.2-1.4 g/kg for HD, wounds) Fluid: 1L + output for HD Nutrition Diagnosis: 1. Increased nutrient needs related to increased metabolic demands as evidenced by HD, wounds. Intervention 1. Recommend CCHO, renal diet when medically appropriate/ tolerated. 2. Recommend ONS [place] BID for poor PO intake. Paged Dr. Fletcher, waiting for call back. Monitor/Evaluate Goal: PO intake at least 75% of estimated needs Monitor: PO intake, Labs, GI function F/U in 2-3 days as high risk 01/28-
[2019-01-26 14:00] LABS: MONOCYTE 5 % (0-7); SEGMENTED NEUTROPHILS 85 % (37-75)
[2019-01-26 14:01] LABS: PLATELET MORPHOLOGY PLATELETS DECREASED; rbc morphology (normal/abnorm) ABNORMAL (NORMAL)
--- NOTE | 2019-01-26 14:30 | NUR ---
SPOKE WITH DR. HUFF OVER THE PHONE REGARDING PT'S ELEVATED TROPONIN AND DR. GRUBER'S RECOMMENDATION TO HAVE TROPONIN TREND DOWN BEFORE DOING ERCP. PER DR. HUFF, CANCEL ERCP FOR TODAY. DR. BRUNER AND ELIA PHELPS RN ALSO AWARE.
--- NOTE | 2019-01-26 16:00 | NUR ---
FFP INFUSION FINISHED. NO ADVERSE REACTIONS NOTED. PT RESTING IN BED. NO ACUTE DISTRESS. SHIFT REASSESSMENT ALSO DONE. PT AAOX1 TO SELF ONLY. GARBLED SPEECH. FOLLOWS SIMPLE COMMANDS AT TIMES. RESP EVEN AND UNLABORED ON RA. ABD SLIGHTLY DISTENDED, ABD SOFT. ANURIC. [place] AV SHUNT, BRUIT/THRILL PRESENT. L AKA AND R BKA. LIJ CVC, DRESSING C/D/I. HOB ELEVATED. ON ISOGEL MATTRESS. FALL PRECAUTIONS. CONTACT ISOLATION. WILL CONTINUE TO MONITOR.
--- NOTE | 2019-01-26 16:53 | NUR ---
PT'S AT BEDSIDE, UPDATED WITH PLAN OF CARE.
--- NOTE | 2019-01-26 18:29 | NUR ---
REPORT GIVEN TO KINGSTON LLAMAS. PT GOING TO ROOM 239B.
--- NOTE | 2019-01-26 18:31 | NUR ---
LATE ENTRY 01/26/19 AT 1831: PT CLEANED. WOUND CARE TO COCCYX DONE ORDERED.
--- NOTE | 2019-01-26 19:05 | NUR ---
RECEIVED PT FROM ICU. PT ON [facility]. PT A/A. [place] ORIENTATION. VITALS STABLE. IV ABX RUNNING. L. IJ HAS NO REDNESS/ SWELLING. R. UA AV SHUNT IN PLACE. BED IN LOW POSITION, CALL LIGHT IN REACH, SAFETY PRECAUTIONS IN PLACE, WILL ENDORSE TO NIGHT NURSE
--- NOTE | 2019-01-26 19:10 | NUR ---
CARE ASSUMED FROM OUTGOING RN. PT RESTING COMFORTABLY IN BED. NO ACUTE DISTRESS NOTED. EVEN AND UNLABORED RESPIRATIONS ON RA. ON TELE# [address] 113[address] LIJ CENTRAL LINE PATENT AND INTACT, DRESSING CDI. [place] AV SHUNT, BRUIT AND THRILL PRESENT. T TUBE PATENT AND INTACT DRAINING GREENISH OUTPUT, DRESSING CDI. LEFT AKA AND R BKA NOTED, ELEVATED WITH PILLOW. AIR MATTRESS IN USE, OPTIFOAM ON WOUND COCCYX, CDI. BED IN LOWEST POSITION. SIDE RAILS UPX2. CALL LIGHT WITHIN REACH. CONTACT PRECAUTION IN PLACE. WILL CONTINUE TO MONITOR.
--- NOTE | 2019-01-26 23:10 | NUR ---
RECEIVED CRITICAL LAB TROPONIN: 0.804. TRENDING DOWN FROM 1.178. DR. ROY MADE AWARE. WILL CONTINUE TO MONITOR.
--- NOTE | 2019-01-27 01:48 | NUR ---
PT RESTING COMFORTABLY IN BED. NO ACUTE DISTRESS NOTED. EVEN AND UNLABORED RESPIRATIONS ON RA. ON TELE# [address] 96[address] LIJ CL PATENT AND INTACT, DRESSING CDI. REPOSITIONED PT. AIR MATTRESS IN USE. BED IN LOWEST POSITION. SIDE RAILS UPX2. CALL LIGHT WITHIN REACH. WILL CONTINUE TO MONITOR.
[2019-01-27 04:41] VITALS: BP 122/74
[2019-01-27 06:01] LABS: CALCIUM 7.8 mg/dL (8.5-10.1); CARBON DIOXIDE 30.8 mmol/L (21-32); CREATININE SERUM 3.6 mg/dL (0.7-1.3); PHOSPHOROUS 4.4 mg/dL (2.5-4.9); POTASSIUM SERUM 3.8 mmol/L (3.5-5.1)
[2019-01-27 06:52] LABS: PLATELET COUNT 117 x10^3mcL (130-400)
--- NOTE | 2019-01-27 07:23 | NUR ---
PT SLEPT IN INTERVALS THROUGHOUT THE SHIFT. ALL NEEDS TENDED TO AND MET. ALL SCHEDULED MEDICATIONS GIVEN. 55ML GREENISH OUTPUT EMPTIED FROM TTUBE. LIJ CL PATENT AND INTACT. REPOSITIONED PT Q2HRS. BED IN LOWEST POSITION. SIDE RAILS UPX2. CALL LIGHT WITHIN REACH. WILL ENDORSE TO ONCOMING SHIFT.
--- NOTE | 2019-01-27 07:25 | NUR ---
RECEIVED PT RESTING IN BED. AWAKE, AAOX1 TO SELF. GARBLED SPEECH. FOLLOWS SIMPLE COMMANDS AT TIMES. RESP EVEN AND UNLABORED ON RA. NO PAIN NOTED. LIJ CVC WITH DRESSING C/D/I. L AKA AND R BKA. FALL PRECAUTIONS. CONTACT ISOLATION. NPO EXCEPT MEDS. BED IN LOW POSITION, CALL LIGHT WITHIN REACH. WILL CONTINUE TO MONITOR.
[2019-01-27 07:50] VITALS: BP 95/43
[2019-01-27 09:13] LABS: rbc morphology (normal/abnorm) ABNORMAL (NORMAL)
[2019-01-27 10:34] LABS: BILIRUBIN DIRECT 8.48 mg/dL (0.0-0.2); BILIRUBIN TOTAL 11.05 mg/dL (0.20-1.00); TOTAL PROTEIN, SERUM 6.8 g/dL (6.4-8.2)
[2019-01-27 10:35] LABS: ALBUMIN 2.2 g/dL (3.4-5.0)
[2019-01-27 11:19] LABS: BAND NEUTROPHIL 0 % (0-10); BASOPHIL 0 % (0-2); MONOCYTE 8 % (0-7); SEGMENTED NEUTROPHILS 81 % (37-75)
[2019-01-27 11:20] LABS: PLATELET MORPHOLOGY PLATELETS DECREASED
[2019-01-27 11:53] VITALS: BP 145/59
--- NOTE | 2019-01-27 12:30 | NUR ---
PT RESTING IN BED. SLEEPING ON AND OFF. ONLY SAYS "NAM." UTILITY WORKER [place] AT BEDSIDE. HEMODIALYSIS STARTED AT THIS TIME. PT IN NO ACUTE DISTRESS. CALL LIGHT WITHIN REACH. WILL CONTINUE TO MONITOR.
--- NOTE | 2019-01-27 16:00 | NUR ---
HEMODIALYSIS FINISHED = 1.4 L OUT. PT IN NO ACUTE DISTRESS. RESTING IN BED. RESP EVEN AND UNLABORED ON RA. HOB ELEVATED. FALL PRECAUTIONS. ON AIR MATTRESS. CALL LIGHT WITHIN REACH. WILL CONTINUE TO MONITOR.
[2019-01-27 16:06] VITALS: BP 111/66
--- NOTE | 2019-01-27 18:28 | NUR ---
PT RESTING IN BED. NO ACUTE DISTRESS. RESP EVEN AND UNLABORED ON RA. CONTACT ISOLATION. ASPIRATION AND FALL PRECAUTIONS. WOUND CARE TO COCCYX WOUND DONE ORDERED. IVF INFUSING TO LIJ CVC, NO REDNESS OR SWELLING NOTED, DRESSING C/D/I. ON AIR MATTRESS. REPOSITIONED. HOB ELEVATED. BED IN LOW POSITION, CALL LIGHT WITHIN REACH. WILL ENDORSE TO ONCOMING SHIFT.
--- NOTE | 2019-01-27 19:15 | NUR ---
CARE ASSUMED FROM OUTGOING RN. PT RESTING COMFORTABLY IN BED. NO ACUTE DISTRESS NOTED. EVEN AND UNLABORED RESPIRATIONS ON RA. ON TELE# [address] 104 WITH OCC PVC. LIJ CENTRAL LINE TRIPLE LUMEN IN PLACE, RUNNING FLUIDS PER EMAR, DRESSING CDI. T-TUBE IN PLACE DRAINING GREENISH OUTPUT VIA GRAVITY, DRESSING CDI. [place] AV SHUNT NOTED, BRUIT AND THRILL PRESENT, DRESSING CDI. CONTACT ISOLATION IN PLACE. BED IN LOWEST POSITION. AIR MATTRESS IN USE. CALL LIGHT WITHIN REACH. WILL CONTINUE TO MONITOR.
[2019-01-27 20:10] VITALS: BP 110/59
--- NOTE | 2019-01-27 23:55 | NUR ---
PT RESTING COMFORTABLY IN BED. NO ACUTE DISTRESS NOTED. PLACED PT BACK ON TELE #[address] 112, REMINDED PT IMPORTANCE OF COLLAR TACKER. EVEN AND UNLABORED RESPIRATIONS ON RA. T-TUBE DRAINING GREENISH OUTPUT VIA GRAVITY. REPOSITIONED PT. AIR MATTRESS IN USE. BED IN LOWEST POSITION. SIDE RAILS UPX2. CALL LIGHT WITHIN REACH. WILL CONTINUE TO MONITOR.
[2019-01-28 04:01] VITALS: BP 103/56
[2019-01-28 06:29] LABS: BASOPHIL % 0.3 % (0-2)
--- NOTE | 2019-01-28 06:47 | NUR ---
PT SLEPT IN INTERVALS THROUGHOUT THE SHIFT. ALL NEEDS TENDED TO AND MET. REFUSED ORAL MEDICATIONS, MD AWARE. BLOOD SUGARS CHECKED THIS AM, 60, REFUSED APPLE JUICE AND SNACKS, D50 GIVEN. RECHECKED: 168. LIJ CENTRAL LINE TRIPLE LUMEN IN PATENT, FLUSHING WELL. DRESSING CDI. [place] AV SHUNT IN PLACE, +BRUIT AND THRILL. REPOSITIONED PT THROUGHOUT THE SHIFT. AIR MATTRESS IN USE. BED IN LOWEST POSITION. SIDE RAILS UPX2. CALL LIGHT WITHIN REACH. WILL ENDORSE TO ONCOMING SHIFT.
[2019-01-28 07:02] LABS: CALCIUM 7.7 mg/dL (8.5-10.1); CARBON DIOXIDE 30.1 mmol/L (21-32); CREATININE SERUM 2.6 mg/dL (0.7-1.3); MAGNESIUM 1.8 mg/dL (1.8-2.4); PHOSPHOROUS 3.3 mg/dL (2.5-4.9); POTASSIUM SERUM 3.2 mmol/L (3.5-5.1)
[2019-01-28 07:09] LABS: PLATELET COUNT 91 x10^3mcL (130-400); RED CELL DISTRIBUTION WIDTH 21.3 % (11.5-14.5)
--- NOTE | 2019-01-28 07:20 | NUR ---
RECEIVED PT RESTING IN BED. AWAKE, ONLY SAYS "HELLO" AND "GOOD." FOLLOW SIMPLE COMMANDS AT TIMES. RESP EVEN AND UNLABORED ON RA. T-TUBE DRAINING GREEN OUTPUT. K[place] AV SHUNT, BRUIT/THRILL PRESENT. LAST HD 01/27/19, 1.4 L OUT. DRESSING TO COCCYX C/D/I. ON AIR MATTRESS. REPOSITIONED Q2H. HOB ELEVATED. ASPIRATION AND FALL PRECAUTIONS. CONTACT ISOLATION. BED IN LOW POSITION, CALL LIGHT WITHIN REACH. WILL CONTINUE TO MONITOR.
[2019-01-28 08:28] VITALS: BP 102/72
--- NOTE | 2019-01-28 09:58 | NUR ---
DR. LAGUNA AWARE PT REFUSED ORAL MEDS AND DOES NOT WANT TO EAT. NO NEW ORDERS. WILL CONTINUE TO MONITOR.
--- NOTE | 2019-01-28 12:11 | NUR ---
DR. LAGUNA AWARE PT GOING IN AND OUT OF A-FIB. NO NEW ORDERS. PT ASYMPTOMATIC. NO ACUTE DISTRESS. WILL CONTINUE TO MONITOR.
[2019-01-28 12:38] VITALS: BP 115/72
[2019-01-28 16:31] VITALS: BP 107/56
--- NOTE | 2019-01-28 19:00 | NUR ---
PT RESTING IN BED. REFUSING TO EAT AND TAKE ORAL MEDS. HOB ELEVATED. ON AIR MATTRESS. CONTACT ISOLATION. DRESSING TO COCCYX WOUND CHANGED ORDERED. IVF INFUSING, NO REDNESS OR SWELLING TO LIJ CVC, DRESSING C/D/I. BED IN LOW POSITION, CALL LIGHT WITHIN REACH. WILL ENDORSE TO ONCOMING SHIFT.
--- NOTE | 2019-01-28 19:10 | NUR ---
CARE ASSUMED FROM OUTGOING RN. PT RESTING COMFORTABLY IN BED. NO ACUTE DISTRESS NOTED. EVEN AND UNLABORED RESPIRATIONS ON RA. ON TELE# [address] 110[address] LIJ CENTRAL LINE PATENT AND INTACT, DRESSING CDI. [place] AV SHUNT IN PLACE, +BRUIT AND THRILL, DRESSING CDI. T-TUBE IN PLACE AND PATENT DRAINING GREENISH OUTPUT VIA GRAVITY, DRESSING CDI. LEFT AKA AND RIGHT BKA NOTED. REPOSITIONED PT. AIR MATTRESS IN USE. CONTACT PRECAUTION IN PLACE. BED IN LOWEST POSITION. SIDE RAILS UPX2. CALL LIGHT WITHIN REACH. WILL CONTINUE TO MONITOR.
[2019-01-28 19:37] VITALS: BP 137/71
--- NOTE | 2019-01-29 00:47 | NUR ---
PT RESTING COMFORTABLY IN BED. NO ACUTE DISTRESS NOTED. EVEN AND UNLABORED RESPIRATIONS ON RA. ON TELE# [address] 112. T-TUBE DRAINING GREENISH OUTPUT VIA GRAVITY, 15ML OUTPUT WITHDRAWN. REPOSITIONED PT. AIR MATTRESS IN USE. BED IN LOWEST POSITION. SIDE RAILS UPX2. CALL LIGHT WITHIN REACH. WILL CONTINUE TO MONITOR.
[2019-01-29 05:31] VITALS: BP 142/61
--- NOTE | 2019-01-29 06:56 | NUR ---
PT SLEPT IN INTERVAL THROUGHOUT THE SHIFT. ALL NEEDS TENDED TO AND MET. LIJ CENTRAL LINE IN PLACE, ALL PORTS PATENT. DRESSING CDI. [place] AV SHUNT IN PLACE, DRESSING CDI. T-TUBE PATENT WITH GREENISH OUTPUT, 50ML WITHDRAWN. BLOOD SUGARS CHECKED, 103 AND 98, NO COVERAGE NEEDED PER SLIDING SCALE. AIR MATTRESS IN USE. WILL ENDORSE TO ONCOMING SHIFT.
[2019-01-29 07:08] LABS: BASOPHIL % 0.1 % (0-2)
[2019-01-29 07:27] LABS: CALCIUM 7.8 mg/dL (8.5-10.1); CARBON DIOXIDE 29.5 mmol/L (21-32); CREATININE SERUM 3.4 mg/dL (0.7-1.3); MAGNESIUM 1.8 mg/dL (1.8-2.4); PHOSPHOROUS 4.2 mg/dL (2.5-4.9); POTASSIUM SERUM 3.8 mmol/L (3.5-5.1)
[2019-01-29 07:34] LABS: PLATELET COUNT 80 x10^3mcL (130-400); RED CELL DISTRIBUTION WIDTH 22.1 % (11.5-14.5)
--- NOTE | 2019-01-29 07:56 | NUR ---
Report received from MURIEL Turcios. Patient resting in bed. Scheduled for ERCP today at 9 am. Patient aware. IV fluids at D5 NS running at rate of 30 ml/hr for low blood sugar management and patient not eating for scheduled procedure. Will continue to monitor. Call light within reach.
[2019-01-29 08:21] VITALS: BP 109/51
--- NOTE | 2019-01-29 08:25 | NUR ---
REPORT GIVEN TO BROOKE RESEARCH DEVELOPMENT DIRECTOR, FOR PENDING ERCP PROCEDURE. WILL CONTINUE TO MONITOR. CALL LIGHT WITHIN REACH.
--- NOTE | 2019-01-29 12:27 | NUR ---
Follow-up Nutrition Assessment: 239T/B AMBAR BALLESTEROS FU HR Dx: Sepsis, UTI PMHx: ESRD on HD on TTS, HTN, chronic liver disease, DM, recent hospitalization for UTI, CVA Labs: (01/29) CREAT 3.4H, AST 100H, HGB 8.2L Meds: cephulac, Colace, D 50%, Diflucan, Humulin, senokot, zofran Diet: NPO for procedure, (01/27-)- Renal PO Intake: (01/28) 0% (pt refuses to eat), (01/27) dinner 30% Weights: (01/25) 67.2 kg, (01/29) unable to access as pt gone for ERCP I/Os: (01/28) 1335/1490 (-155) Skin: Sacro-coccyx wound, stage 4 Garrick: 12 Edema: LUE GI: Last BM: 01/27 RD Note (01/29): Patient was gone for ERCP. Per MURIEL Jensen, pt usually refuses to eat or take meds and need encouragement to take them. RN said that pt does not have any N/V/D/C at this time. Patient's diet has been progressed to full liquid. Estimated Nutritional Needs Based on adjusted body weight (53 kg) Energy: 9086-2273 kcal/day (30-35 kcal/kg for HD, wounds) Protein: 64-74 g/day (1.2-1.4 g/kg for HD, wounds) Fluid: 1L + output for HD Nutrition Diagnosis: 1. Increased nutrient needs related to increased metabolic demands as evidenced by HD, wounds. (ongoing) Intervention: 1. Recommend changing current diet to Renal (full liquid) diet. 2. Recommend ONS Nepro BID for poor PO intake. Discussed with Dr. Fletcher. Monitor/Evaluate: Goal: Have pt meet at least 75% of estimated needs Monitor: PO intake, Labs, GI function F/U in 3-5 days as moderate risk 02/01-
--- NOTE | 2019-01-29 12:28 | NUR ---
1. Recommend changing current diet to Renal (full liquid) diet. 2. Recommend ONS Nepro BID for poor PO intake. Discussed with Dr. Fletcher.
[2019-01-29 13:50] LABS: rbc morphology (normal/abnorm) ABNORMAL (NORMAL); target cell (codocyte) 1+
[2019-01-29 17:01] VITALS: BP 118/49
--- NOTE | 2019-01-29 19:58 | NUR ---
Report given to car shifter RN. Patient in stable condition. No signs of distress noted.
--- NOTE | 2019-01-29 20:00 | NUR ---
PT A/A/O X1, DOES NOT FOLLOW COMMANDS. DENIES DIZZINESS AND HEADACHE. BREATH SOUNDS CLEAR. BREATHING EVEN AND UNLABORED ON ROOM AIR. DENIES CHEST PAIN AND PRESSURE. BOWEL SOUNDS ACTIVE. NO C/O N/V AND ABD PAIN. PITTING EDEMA NOTED ON LUE. DRESSING NOTED ON RIGHT SIDE OF THE ABDOMEN WITH BROWN DRAINAGE NOTED. LEFT AKA AND RIGHT BKA NOTED HEALED. OPTIFOAM NOTED ON COCCYX AREA. ON AIR MATTRESS. CENTRAL LINE NOTED ON THE LEFT IJ INFUSING WITH D5NS AT 30 ML/HR ON THE WHITE PORT. [place] AV SHUNT NOTED WITH POSITIVE BRUIT AND THRILL. MADE PT COMFORTABLE. PLACED CALL LIGHT WITH IN REACH. WILL CONTINUE TO MONITOR.
[2019-01-29 21:17] VITALS: BP 94/65
[2019-01-30] VITALS (9 sets, daily range): BP systolic 79–155; BP diastolic 40–71
--- NOTE | 2019-01-30 00:54 | NUR ---
PT RESTING WITH EYES CLOSED. EASILY AROUSABLE WITH VERBAL STIMULI. PT KEEPS ON PULLING TELE MONITOR OF. INSTRUCTED THE PT NOT TO TAKE IT OF. WILL CONTINUE TO MONITOR.
--- NOTE | 2019-01-30 04:43 | NUR ---
DRESSING CHANGED ON THE RIGHT ABDOMEN WITH 2X2 STERILE GAUZE AND 4X4 ISLAND DRESSING. PT TOLERATED IT WELL. PT TOOK OF TELE MONITOR. INSTRUCTED THE PT NOT TO TAKE IT OF. NO INDICATION OF LEARNING. WILL CONTINUE TO MONITOR.
--- NOTE | 2019-01-30 06:30 | NUR ---
PT QUIET AND RESTING. DRESSING ON THE RIGHT ABDOMEN C/D/I. CENTRAL LINE INTACT. MADE PT COMFORTABLE. WILL ENDORSE TO THE AM NURSE ACCORDINGLY.
[2019-01-30 07:17] LABS: BILIRUBIN DIRECT 12.01 mg/dL (0.0-0.2); CARBON DIOXIDE 20.9 mmol/L (21-32); MAGNESIUM 1.9 mg/dL (1.8-2.4); POTASSIUM SERUM 3.9 mmol/L (3.5-5.1)
[2019-01-30 07:23] LABS: ALBUMIN 1.7 g/dL (3.4-5.0); CREATININE SERUM 4.2 mg/dL (0.7-1.3)
[2019-01-30 07:30] LABS: BILIRUBIN TOTAL 15.63 mg/dL (0.20-1.00)
[2019-01-30 07:37] LABS: PLATELET COUNT 82 x10^3mcL (130-400); RED CELL DISTRIBUTION WIDTH 22.8 % (11.5-14.5)
--- NOTE | 2019-01-30 08:00 | NUR ---
RECEIVED PT IN BED A/OX1 PERSON ONLY. GARBLES SPEECH ABLE TO MAKE BASIC NEEDS KNOWN. HX CVA WITH LT SIDED WEAKNESS. RESP EVEN AND UNLABORED WITH DIMINISHED BS BLL. ON RA. NSR WITH 1ST DEGRE AND PVCS ON TELE. NO S/SX OF CP/DISCOMFORT NOTED. +1 EDEMA TO LUE TRACE TO RUE. LIJ IN PLACE ALL PORTS PATENT. WITH D5NS AT 30ML/HR. ABD DISTENDED AND SLIGHTLY FIRM WITH DISTANT BS X4. S/P ERCP WITH T-TUBE REMOVAL WITH OLD T-TUBE SITE TO RT ABD WITH DRSG IN PLACE CDI. PT HAD WOUND ON COCCYS WITH OPTIFOAM IN PLACE, CDI. ESRD WITH HD TTS SCHEDULED TODAY. AV SHUNT TO RUE. BEDBOUND WITH RT BKA, LT AKA. TURN Q2HRS AND ON LOW AIRLOSS MATTRESS. CONTACT ISO PRECAUTIONS. CALL LIGHT IN REACH NEEDS ANTICIPATED.
[2019-01-30 11:55] LABS: BAND NEUTROPHIL 1 % (0-10); MONOCYTE 8 % (0-7); SEGMENTED NEUTROPHILS 80 % (37-75)
--- NOTE | 2019-01-30 11:55 | NUR ---
MADE AWARE BY HD NURSE THAT PT REQUIRED ALBUMIN PER DR. LANDRY ORDERS. B/P 86/53 DOSE GIVEN TO HD NURSE AT THIS TIME. TO BE GIVEN WITH HD TX.
[2019-01-30 11:57] LABS: rbc morphology (normal/abnorm) ABNORMAL (NORMAL)
[2019-01-30 11:59] LABS: ovalocyte/elliptocyte 1+; tear drop cell (dacryocyte) 1+
--- NOTE | 2019-01-30 12:48 | NUR ---
PT REQUIRED SECOND DOSE ALBUMIN FOR B/P 78/48, DOSE GIVEN TO HD NURSE TO GIVE WITH TX. PT ALSO REQUIRED ANOTHER BAG OF NS DURING HD TX. CONT TO MONITOR.
--- NOTE | 2019-01-30 13:22 | NUR ---
CALLED INTO PT'S ROOM BY HD NURSE. MADE AWARE THAT HD TX HAD BEEN STOPPED SINCE PT COULD NOT MAINTAIN ADEQUATE B/P AND Mary MÉNDEZ WAS CALLED AND MADE AWARE THAT TX WAS STOPPED. PT HAD 2.5HR AND WAS +600ML WITH TREATMENT. PT CURRENTLY HAD B/P 79/40 (52). PT WAS DROWSY AND DIFFICULT TO ARROUSE. CHARGE NURSE CALLED FOR ASSISTANCE AND DR. BRUNER PAGED. 1328: DR. BRUNER AND DR. LIRIANO AT BEDSIDE EVALUATING PT. PT WITH B/P 83/38 (53) O2 SAT 94% ON O2 AT 5L/MIN VIA MASK. RECEIVED ORDER FOR BOLUS 500ML OF NS. 1335: BOLUS STARTED. MD STATED HE WOULD ORDER STAT LABS, CXR AND ABG. 1350: B/P 86/53 (64) PT BECOMING MORE RESPONSIVE. MD STATED TO CONT TO MONITOR AND REPORT AND CHANGES. AT BEDSIDE DURING THIS TIME. REMAINED AT BEDSIDE TO CONT TO MONITOR PT WITH CHARGE NURSE AND RT PRESENT.
--- NOTE | 2019-01-30 14:40 | NUR ---
BOLUS COMPLETED B/P 114/57 MAP 69. CONT PT AWAKE SPEAKING WITH .
[2019-01-30 14:57] LABS: CALCIUM 7.9 mg/dL (8.5-10.1); CARBON DIOXIDE 26.7 mmol/L (21-32); CREATININE SERUM 2.3 mg/dL (0.7-1.3)
[2019-01-30 14:58] LABS: RED CELL DISTRIBUTION WIDTH 22.5 % (11.5-14.5)
[2019-01-30 14:59] LABS: POTASSIUM SERUM 2.9 mmol/L (3.5-5.1)
--- NOTE | 2019-01-30 15:05 | NUR ---
B/P 91/43 (59). HAD RECEIVED CRITICAL K 2.[address] BRUNER RETURN WAS CALLED AND MADE AWARE STATED HE WOULD ORDER KRIDER. TOTIFIED THAT B/P HAD BEGAN TO TREND DOWN ONCE MORE. STATED HE WOULD ORDER ANOTHER 500ML BOLUS.
[2019-01-30 15:14] LABS: PLATELET COUNT 11 x10^3mcL (130-400)
--- NOTE | 2019-01-30 15:15 | NUR ---
RECEIVED CRITICAL HG 6.9 AND PLT 11.O PAGED AWAITING CALL BACK.
--- NOTE | 2019-01-30 15:20 | NUR ---
RECEIVED CRITICAL HG 6.[address] BRUNER PAGED AND RETURN CALL AT THIS TIME. MADE AWARE STATED TO HOLD 500ML NS BOLUS SINCE PT WILL BE RECEIVING BLOOD TRANSFUSION INSTEAD. AWAITING FURTHER ORDERS.
--- NOTE | 2019-01-30 15:50 | NUR ---
PT'S B/P HAD CONTINUE TO DROP DR. BRUNER AT BEDSIDE EVALUATING PT WHO IS AWAKE AT THIS TIME EATING PUDDING. MD WITH ORDER FOR 250ML BOLUS INITIATED AT THIS TIME. B/P 86/47 (56). CHARGE NURSE AWARE OF CURRENT PT STATUS.
--- NOTE | 2019-01-30 15:50 | NUR ---
DR. BRUNER AT BEDSIDE EVALUATING WHO IS AWAKE AT THIS TIME EATING PUDDING. MADE AWARE B/P REMAINS LOW 81/51 (61). MD STATED HE WOULD ORDER 250ML NS BOLUS TO BE GIVEN NOW SINCE BLOOD WILL NOT BE AVAILABLE AT THIS TIME.
--- NOTE | 2019-01-30 16:25 | NUR ---
MADE AWARE BY CHARGE NURSE THAT DR. BRUNER HAD CALLED AND DR. JIMENEZ WANTED PT TO BE TRANSFER TO ICU. BED REQUEST INITIATED. BOLUS ALMOST COMPLETED. AT THIS TIME. B/P 91/45 (60). PT AWAKE AT THIS TIME. IS NO LONGER AT BEDSIDE.
[2019-01-30 16:29] LABS: LIPASE 190 IU/L (73-393)
[2019-01-30 16:31] LABS: AMYLASE 22 U/L (25-115)
--- NOTE | 2019-01-30 16:35 | NUR ---
DR. DAVID BRUNER AT BEDSIDE TO EVAL PT. WITH RDERS TO TRANSFER TO ICU. AWAITING BED AVAILABILITY.
--- NOTE | 2019-01-30 17:05 | NUR ---
REPORT GIVEN TO ICU NURSE DAR PT TRANSFER TO [facility].
--- NOTE | 2019-01-30 17:07 | NUR ---
RECEIVED PT AT THIS TIME VIA BED WITH 2 MST RN'S AND BUS TROLLEY AND TAXI INSTRUCTOR. PT UNABLE TO FOLLOW COMMANDS. UNABLE TO STATE NAME, , PLACE, OR CURRENT YEAR. HX OF CVA WITH LEFT SIDED WEAKNESS. SPEECH IS GARBLED. RESPONDS TO VERBAL, TACTILE, AND PAINFUL STIMULUS. NO FACIAL DROOP NOTED. ICTERUS NOTED TO B/E EYES. JAUNDICED ORAL MUCOSA NOTED. EENT FREE OF DISCHARGE. NO JVD. TRACHEA MIDLINE. LIJ TLC CVC INTACT, X3 PORTS PATENT, DRESSING CDI. ON 2L NASAL CANNULA, O2 SAT OF 97%. BREATHING E/U. SYMMETRICAL CHEST WALL EXPANSION. COARSE CRACKLES TO BUL, DIM TO BLL. NO S/S OF RESP DISTRESS NOTED. NSR ON SWITCHBOARD OPERATOR, HR = 94, BP = 90/45 (58), RR= 19, TEMP = 97.5 F. S1/S2 HEART SOUNDS AUDIBLE. WEAK PULSES TO BUE, RIGHT BKA AND LEFT AKA NOTED - ABSENT PULSES. SKIN WARM/DRY TO TOUCH, COLOR CONSISTENT WITH ETHNICITY. D5NS INFUSING @ 30ML/HR, K-RIDER INFUSING @ THIS TIME. ABD IS FIRM, DISTENDED, SYMMETRICAL. ACTIVE BOWEL SOUNDS X3. NO BM AT THIS TIME. DRESSING FROM T-TUBE REMOVAL TO R ABD NOTED. ULCER TO COCCYX WITH OPTIFOAM DRESSING CDI. ANURIC. HD PATIENT - AV SHUNT TO R ARM INTACT AND SECURED, DRESSING CDI. X3 SIDE RAILS UP, BED IN LOWEST POSITION, CALL LIGHT WITHIN REACH.
--- NOTE | 2019-01-30 17:07 | NUR ---
RECEIVED PT AT THIS TIME VIA BED WITH 2 MST RN'S AND WINDOWS SERVER ADMINISTRATOR. PT UNABLE TO FOLLOW COMMANDS. UNABLE TO STATE NAME, , PLACE, OR CURRENT YEAR. RESPONDS TO VERBAL, TACTILE, AND PAINFUL STIMULUS. NO FACIAL DROOP NOTED. ICTERUS NOTED TO B/E EYES. JAUNDICED ORAL MUCOSA NOTED. EENT FREE OF DISCHARGE. NO JVD. TRACHEA MIDLINE. LIJ TLC CVC INTACT, X3 PORTS PATENT, DRESSING CDI. ON 2L NASAL CANNULA, O2 SAT OF 97%. BREATHING E/U. SYMMETRICAL CHEST WALL EXPANSION. COARSE CRACKLES TO BUL, DIM TO BLL. NO S/S OF RESP DISTRESS NOTED. NSR ON FIRE SUPPRESSION CAPTAIN, HR = 94, BP = 90/45 (58), RR= 19, TEMP = 97.5 F. S1/S2 HEART SOUNDS AUDIBLE. WEAK PULSES TO BUE, RIGHT BKA AND LEFT AKA NOTED - ABSENT PULSES. SKIN WARM/DRY TO TOUCH, COLOR CONSISTENT WITH ETHNICITY. D5 1/2 NS INFUSING @ 30ML/HR, K-RIDER INFUSING @ THIS TIME. ABD IS FIRM, DISTENDED, SYMMETRICAL. ACTIVE BOWEL SOUNDS X3. NO BM AT THIS TIME. DRESSING FROM T-TUBE REMOVAL TO R ABD NOTED. COCCYX ISLAND DRESSING NOTED. ANURIC. HD PATIENT - AV SHUNT TO R ARM INTACT AND SECURED, DRESSING CDI. X3 SIDE RAILS UP, BED IN LOWEST POSITION, CALL LIGHT WITHIN REACH.
[2019-01-30 17:25] LABS: BAND NEUTROPHIL 10 % (0-10); BASOPHIL 0 % (0-2); MONOCYTE 3 % (0-7); SEGMENTED NEUTROPHILS 63 % (37-75)
[2019-01-30 17:27] LABS: rbc morphology (normal/abnorm) ABNORMAL (NORMAL)
[2019-01-30 17:28] LABS: PLATELET MORPHOLOGY PLATELETS DECREASED
--- NOTE | 2019-01-30 17:35 | NUR ---
1UNIT OF PRBC'S VERIFIED BY LOADING RACK SUPERVISOR AND PRIMARY RN. SEE BLOOD BANK SHEET FORE MORE DETAILS. INITIATING PRBC'S AT THIS TIME.
--- NOTE | 2019-01-30 17:50 | NUR ---
15 MINUTES POST PRBC INFUSION ASSESSMENT: NO S/SX OF ADVERSE REACTIONS AT THIS TIME. SEE BLOOD BANK SHEET FOR MORE DETAILS. WILL CONT TO MONITOR.
--- NOTE | 2019-01-30 18:25 | NUR ---
DR. HUFF PAGED AT DR. HINSON REQUEST AND MADE AWAREPT HAD BEEN TRANSFERED TO ICU D/T HYPOTENSION AND DROPS IN HG AND PLT. STATED HE WOULD CALL ICU AND OBTAIN UPDATE.
--- NOTE | 2019-01-30 18:45 | NUR ---
SPOKE WITH DR HUFF AND INFORMED HIM OF PATIENT'S MOST RECENT LABS. PATIENT UPDATE PROVIDED INCLUDING TRANSFUSION ORDERS. NEW ORDERS RECEIVED TO TRANSFUSE THE FOLLOWING ONLY: 1 UNIT PRBC, 1 UNIT FFP, 1 UNIT PLATELETS. ALSO NEW ORDER RECEIVED FOR REGLAN 5 MG Q 8HR AND VITAMIN K, 10 MG IV. READ BACK AND REPEATED. WILL CARRY OUT ORDER.
--- NOTE | 2019-01-30 20:05 | NUR ---
1 UNIT OF PRBC'S COMPLETED AT THIS TIME. NO S/SX OF ADVERSE REACTIONS. SEE BLOOD BANK SHEET FOR MORE DETAILS.
--- NOTE | 2019-01-30 23:01 | NUR ---
DR. VILA AND DR. SILVA AT BEDSIDE ASSESSING PT. NURSING UPDATES PROVIDED. NO NEW ORDERS AT THIS TIME.
--- NOTE | 2019-01-30 23:50 | NUR ---
CALLED BLOOD BANK FOR UPDATES ON FFP AND PLT. BOTH ARE NOT READY AT THIS TIME AND THEY STATED THEY WILL CALL UNIT WHEN BOTH ARE READY.
[2019-01-31] VITALS (12 sets, daily range): BP systolic 96–141; BP diastolic 36–68
--- NOTE | 2019-01-31 00:50 | NUR ---
FFP RECEIVED AT THIS TIME AND VERIFIED BY PRIMARY RN AND PARTS ADVISOR. PRE-ASSESSMENT COMPLETED, SEE BLOOD BANK SHEET FOR MORE DETAILS. WILL MONITOR AND ASSESS FOR ADVERSE REACTIONS.
--- NOTE | 2019-01-31 01:05 | NUR ---
15 MIN POST FFP TRANSFUSION - NO S/SX OF ADVERSE REACTIONS. SEE BLOOD BANK SHEET FOR MORE DETAILS. WILL CONT TO MONITOR.
--- NOTE | 2019-01-31 01:23 | NUR ---
PT BECOMING MORE ALERT AND TALKING IN FULL SENTENCES. SPEECH SLOW BUT APPROPRIATE AND ABLE TO MAKE NEEDS KNOWN. PT REMAINS IN BED. ON 2L NASAL CANNULA, TACHYNPNIC, BUT WITH NO S/S OF RESP DISTRESS. 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 TURNED/REPOSITIONED Q2H, ISOGEL MATTRESS IN USE, BLE OFFLOADED WITH PILLOWS.
--- NOTE | 2019-01-31 02:15 | NUR ---
UPON ASSESSMENT AND AUSCULTATION OF LUNGS, PT DEVELOPED EXPIRATORY COARSE CRACKLES. DR. JULITO SYKES AT THIS TIME.
--- NOTE | 2019-01-31 02:21 | NUR ---
DR. ROY CALLED BACK AND INFORMED ABOUT PT'S FLUID OVERLOAD STATUS DUE TO EXPIRATORY COARSE CRACKLES AUSCULTATED AND REFLEX LACTATE OF 8.9. DR. ROY STATED TO FINISH THIS UNIT OF FFP AND TO HOLD UNIT OF PLATELETS. WILL CARRY OUT ORDERS.
--- NOTE | 2019-01-31 02:40 | NUR ---
REFLEX LACTATE OF 9.5. DR. ROY PAGED AT THIS TIME.
--- NOTE | 2019-01-31 02:43 | NUR ---
DR. ROY CALLED BACK AND INFORMED OF PT'S LACTIC ACID OF 9.5. NO NEW ORDERS AT THIS TIME.
--- NOTE | 2019-01-31 03:05 | NUR ---
1 UNIT OF FFP COMPLETED AT THIS TIME. NO ADVERSE REACTIONS NOTED. SEE BLOOD BANK SHEET IN CHART FOR MORE DETAILS.
--- NOTE | 2019-01-31 03:11 | NUR ---
REPORT GIVEN TO DEMARCUS LLAMAS. ALL QUESTIONS ANSWERED AND ADDRESSED. RN TO ASSUME CARE.
[2019-01-31 05:15] LABS: BASOPHIL % 0.2 % (0-2)
[2019-01-31 05:17] LABS: RED CELL DISTRIBUTION WIDTH 20.2 % (11.5-14.5)
[2019-01-31 05:25] LABS: CALCIUM 8.4 mg/dL (8.5-10.1); CARBON DIOXIDE 20.5 mmol/L (21-32); CREATININE SERUM 2.7 mg/dL (0.7-1.3); PHOSPHOROUS 3.5 mg/dL (2.5-4.9); POTASSIUM SERUM 3.3 mmol/L (3.5-5.1)
[2019-01-31 05:32] LABS: MAGNESIUM 1.5 mg/dL (1.8-2.4)
[2019-01-31 05:33] LABS: PLATELET COUNT 39 x10^3mcL (130-400)
--- NOTE | 2019-01-31 06:38 | NUR ---
Seen and examined by with no new orders. Seen and examined by Dr. Matson with new orders for HD today noted and carried out. Will continue to monitor.
--- NOTE | 2019-01-31 08:00 | NUR ---
ALERT EYES OPEN. UNABLE TO FOLLOW COMMANDS. TOTAL CARE. POSITIONED WITH PILLOWS. ON 02 4L NC RESP 33-40. CONGESTION THROUGHOUT. EDEMA TO UPPER EXTS. HD ORDERED FOR TODAY. DIALYSIS SITE RT UPPER ARM SHUNT. DRESSING CDI. HOB ELEVATED TO PROMOTE BETTER BREATHING. SR UP X 4 FOR SAFETY.NO S/S PAIN. D5 NS INFUSING 30 CC H OUR RT UPPER ARM CENTRAL LT IJ. ALL PORTS PATENT.
[2019-01-31 08:51] LABS: BILIRUBIN DIRECT 12.12 mg/dL (0.0-0.2); TOTAL PROTEIN, SERUM 6.2 g/dL (6.4-8.2)
--- NOTE | 2019-01-31 08:51 | NUR ---
SEEN BY DR. JIMENEZ WHO REQUESTED PT BE PLACED ON BIBAP OR HIFLOW. RT PLACING PT ON BIPAP.
[2019-01-31 09:03] LABS: ALBUMIN 2.2 g/dL (3.4-5.0)
[2019-01-31 09:05] LABS: BILIRUBIN TOTAL 17.2 mg/dL (0.20-1.00)
--- NOTE | 2019-01-31 09:11 | NUR ---
DIALYSIS NURSE HERE STARTING HEMODIALYSIS.
--- NOTE | 2019-01-31 09:52 | NUR ---
PT NON RESPONSIVE. EYES OPEN. HEMODIALISIS ONGOING. ALBUMIN INFUSING. RT HERE. PT TO BE INTUBATED. HR 87,SAT ON BIPAP 95, R 26, BP 128/109. TURNED CARE OVER TO ELIA RODRIGEZ RN AND CHARGE NURSE IN PT ROOM.
--- NOTE | 2019-01-31 10:15 | NUR ---
NIBP 70/40, MAP 48. LEVOPHED DRIP STARTED AT THIS TIME AT 4 MCG/MIN. WILL CONTINUE TO MONITOR.
--- NOTE | 2019-01-31 10:24 | NUR ---
INTUBATION NOTE: RECIEVED REPORT FROM MURIEL SIFUENTES TO ASSUME ALL CARES. ALL QUESTIONS AND CONCERNS ADDRESSED. WALKED INTO THE ROOM AND FOUND PATIENT WITH A BLANK STARE. PATIENT IS OBTUNDED AND AGONAL BREATHING ON BI-PAP. DR. JIMENEZ WAS CALLED AND WAS NOTIFIED TO CALL ED TO INTUBATE. 1001: ETIMODATE 10 MG IVP GIVEN 1002: SUCCHYCHOLINE 100 MG IVP GIVEN 1009: PATIENT INTUBATED BY DR. RICHARDS UNDER THE SUPERVISION OF DR. AYALA ETT SIZE 8.0 AND 26 CM LL WITH VENT SETTINGS: AC MODE, FI02 100%, RATE 12, VT 500 AND PEEP 5. 1015: OGT INSERTED WITH AIRBOLUS AUSCULTATED. RADIOLOGY CALLED FOR XCR TO VERIFY ETT AND OGT PLACEMENT. WILL CONTINUE TO MONITOR.
--- NOTE | 2019-01-31 10:46 | NUR ---
NIBP 92/62, MAP 72. LEVIOPHED DRIP TITRATED UP TO 6 MCG/MIN. PATIENT CURRENLTY RECIEVING HEMODIALYSIS AT THIS TIME. WILL CONTINUE TO MONITOR.
--- NOTE | 2019-01-31 11:40 | NUR ---
662 ML OF PLATELETS DONE INFUSING DURING HEMODIALYSIS AT 1140. PRE-VITALS @ 1109: TEMP 92.0 F, HR 93, NIBP 115/53, RR 13 AND 100% ON VENT. 15 MIN VITALS @ 1125: TEMP 92.0 F, HR 94, NIBP 121/60, RR 14 AND 100% ON VENT. POST VITALS @ 1140: TEMP 92.3 F, HR 96, NIBP 106/55, RR 19 AND 100% ON VENT. NO SIGNS OF ADVERSE REACTION. WILL CONTINUE TO MONITOR.
--- NOTE | 2019-01-31 11:41 | NUR ---
TEMPORAL TEMP 86.8 F. WARMING BLANKET APPLIED AND RECTAL THERMOMETER PLACED WHICH IS READING 92.3 F. WILL CONTINUE TO MONITOR.
--- NOTE | 2019-01-31 11:45 | NUR ---
HEMODIALYSIS DONE AT THIS TIME WITH 2 L OUT. WILL CONTINUE TO MONITOR.
--- NOTE | 2019-01-31 11:46 | NUR ---
DR. BRUNER SPEAKING WITH PT'S IN UNIT IN REGARDS TO CODE STATUS. PER PT'S SHE WILL LIKE PT TO REMAIN FULL CODE AT THIS TIME. WILL CONT TO MONITOR.
--- NOTE | 2019-01-31 16:50 | NUR ---
NIBP 80/50, MAP 60. LEVOPHED DRIP TITRATED UP FROM 2 TO 6 MCG/MIN. WILL CONTINUE TO MONITOR.
--- NOTE | 2019-01-31 17:47 | NUR ---
PATIENT TURNED AND NOTICIED SOME STOOL IN THE ANAL CANAL, DIGITAL DISIMPACTION PERFORMED WITH LARGE AMOUNT OF STOOL NOTED AND REMOVED. NEW RECTAL TUBE INSERTED DISPLAYING RECTAL TEMP 93.9 F. DRESSING TO SACRAL PRESSURE ULCER REMOVED, WOUND CLEANSED WITH NORMAL SALINE, XEROFORM APPLIED AND SECURED IN PLACE WITH AN OPTIFOAM DRESSING D/C/I. PATIENT REPOSITIONED TO LEFT SIDE WITH HOB ELEVATED AND PILLOWS IN PLACE TO ALLEVIATE PRESSURE POINTS. NEPRO TUBE FEEDINGS STARTED AT 5 ML/HR WHICH IS THE GOAL RATE WITH FWF 50 ML Q 4 HRS. WILL CONTINUE TO MONITOR.
--- NOTE | 2019-01-31 22:00 | NUR ---
DR ROY NOTIFIED PT LACTIC ACID 20.9 AND THAT THE FSBS @ 2140 READ LOW AND 1AMP OF D50 WAS PUSHED, REPEAT FSBS @ 2200 WAS 97, NO NEW ORDERS RECEIVED WILL CONTINUE TO MONITER
[2019-02-01] VITALS (18 sets, daily range): BP systolic 69–148; BP diastolic 38–64
--- NOTE | 2019-02-01 00:40 | NUR ---
PT FSBS 29 AND 28 1 AMP D50 IVP GIVEN AND DR ROY NOTIED AND IFV CHANGED TO D10 @ 30ML/HR MADE AWARE OF PTS RR 25-35 WITH A HR 100-115 MOST OF THE EVENING RECTAL TEMP OF 96.7 AND PT IS ON WARMING BLANKET
[2019-02-01 06:22] LABS: RED CELL DISTRIBUTION WIDTH 21.5 % (11.5-14.5)
[2019-02-01 06:31] LABS: CALCIUM 9.7 mg/dL (8.5-10.1); CARBON DIOXIDE 11.9 mmol/L (21-32); CREATININE SERUM 3.3 mg/dL (0.7-1.3); MAGNESIUM 2.2 mg/dL (1.8-2.4); POTASSIUM SERUM 4.9 mmol/L (3.5-5.1)
--- NOTE | 2019-02-01 08:14 | NUR ---
NIBP 81/22. LEVOPHED DRIP TITRATED UP TO 10 MCG/MIN. WILL CONTINUE TO MONITOR.
--- NOTE | 2019-02-01 08:16 | NUR ---
NIBP 71/35, MAP 47. LEVOPHED DRIP TITRATED UP TO 20 MCG/MIN. WILL CONTINUE TO MONITOR.
--- NOTE | 2019-02-01 08:18 | NUR ---
NIBP 76/38, MAP 52. LEVOPHED DRIP TITRATED UP TO 25 MCG/MIN. WILL CONTINUE TO MONITOR.
--- NOTE | 2019-02-01 08:30 | NUR ---
PER DR JIMENEZ INCREASE THE RATE TO 20. WILL CONTINUE TO MONITOR.
--- NOTE | 2019-02-01 08:30 | NUR ---
DR. JIMENEZ AND MYSELF SPEAKING WITH PT'S AT BEDSIDE. DR. JIMENEZ INFORMED PT'S OF POOR PROGNOSIS AT THIS TIME AND CODE STATUS. PER PT'S SHE WOULD LIKE PT TO REMAIN A FULL CODE. PRIMARY RN AND DR. BRUNER MADE AWARE.
--- NOTE | 2019-02-01 08:32 | NUR ---
PATIENT ROUNDS WITH DR. PÉREZ AND RESIDENTS. UPDATES PROVIDED AND POC DISCUSSED. DR. PÉREZ AND DR. BRUNER TALKING TO PATIENT'S REGARDING POOR PROGNOSIS. WILL CONTINUE TO MONITOR.
--- NOTE | 2019-02-01 08:39 | NUR ---
NIBP 110/56, MAP 74. LEVOPHED DRIP TITRATED DOWN TO 20 MCG/MIN AND MORAIMA-SYNEPHRINE DRIP STARTED AT 25 MCG/MIN. WILL CONTINUE TO MONITOR.
[2019-02-01 08:54] LABS: PHOSPHOROUS 9.2 mg/dL (2.5-4.9)
--- NOTE | 2019-02-01 09:00 | NUR ---
NO BP READING AT THIS TIME. NEOSYN TITRATED TO 150 MCG/MIN. PRIMARY RN MADE AWARE.
--- NOTE | 2019-02-01 09:10 | NUR ---
NIBP 75/30, MAP 45. LEVOPHED DRIP TITRATED UP TO 25 MCG/MIN AND MORAIMA-SYNEPHRINE DRIP TITRATED UP TO 180 MCG/MIN. WILL CONTINUE TO MONITOR.
--- NOTE | 2019-02-01 09:21 | NUR ---
NIBP 68/29, MAP 42. LEVOPHED DRIP TITRATED UP TO 30 MCGMIN AND MORAIMA-SYNEPHRINE DRIP TITRATED UP TO 225 MCG/MIN. WILL CONTINUE TO MONITOR.
--- NOTE | 2019-02-01 09:39 | NUR ---
UNABLE TO OBTAIN A NIBP AT THIS TIME. LEVOPHED DRIP INFUSING AT MAX OF 30 MCG/MIN AND MORAIMA-SYNEPHRINE DRIP TITRATED UP TO MAX OF 300 MCG/MIN. DR. JIMENEZ MADE AWARE AND WILL PUT ORDER IN FOR VASOPRESSIN. WILL CONTINUE TO MONITOR.
[2019-02-01 09:48] LABS: BAND NEUTROPHIL 39 % (0-10); MONOCYTE 5 % (0-7); SEGMENTED NEUTROPHILS 30 % (37-75)
[2019-02-01 09:49] LABS: METAMYELOCTE 6 % (0-2); MYELOCYTE 3 % (0-2); rbc morphology (normal/abnorm) ABNORMAL (NORMAL)
[2019-02-01 09:50] LABS: PLATELET MORPHOLOGY LARGE PLATELET SEEN; ovalocyte/elliptocyte 1+; schistocyte (helmet cell) 1+
[2019-02-01 09:54] LABS: PLATELET COUNT 39 x10^3mcL (130-400)
--- NOTE | 2019-02-01 10:04 | NUR ---
NIBP 91/39, MAP 54. VASOPRESSIN DRIP STARTED AT 0.02 U/MIN. LEVOPHED DRIP REMAINS AT 30 MCG/MIN AND MORAIMA-SYNEPHRINE DRIP REMAINS AT 300 MCG/MIN. WILL CONTINUE TO MONITOR.
--- NOTE | 2019-02-01 10:36 | NUR ---
NIBP 94/24, MAP 47. VASOPRESSIN TITRATED UP TO MAX OF 0.04 U/MIN AND LEVOPHED AND MORAIMA-SYNEPHRINE DRIP REMAIN INFUSING AT THE MAX RATE PER ORDER. WILL CONTINUE TO MONITOR.
--- NOTE | 2019-02-01 11:28 | NUR ---
NIBP 69/46, MAP 52. PAGED DR. FRANCISCO PAGED TWICE WITH NO CALL BACK. [place], DIALYSIS NURSE STOPPED HEMODIALYSIS AT THIS TIME, COMPLETED 2 HRS AND 45 MIN, FILTER ONLY. WILL CONTINUE TO MONITOR.
--- NOTE | 2019-02-01 11:43 | NUR ---
BEDSIDE GLUCOSE IS 59. 1 AMP OF D50 IVP WAS GIVEN. WILL RECHECK BLOOD SUGAR AT 1200. WILL CONTINUE TO MONITOR.
--- NOTE | 2019-02-01 12:11 | NUR ---
BEDSIDE GLUCOSE RE-CHECKED AND IS 185. WILL CONTINUE TO MONITOR.
--- NOTE | 2019-02-01 12:13 | NUR ---
NIBP 127/74, MAP 82, VASOPRESSIN TITRATED DOWN FROM 0.04 U/MIN. LEVOPHED AND MORAIMA-SYNEPHRIEN DRIP REMAIN INFUSING AT MAX DOSE PER EMAR. WILL CONTINUE TO MONITOR.
--- NOTE | 2019-02-01 12:16 | NUR ---
NIBP 129/58, MAP 78. VASOPRESSIN TITRATED OFF AT THIS TIME. LEVOPHED AND MORAIMA-SYNEPHRINE DRIP REMAIN MAX DOSE PER ORDER. WILL CONTINUE TO MONITOR.
--- NOTE | 2019-02-01 13:00 | NUR ---
NIBP 119/91, MAP 00. LEVOPHED DRIP TITRATED TO 26 MCG/MIN AND MORAIMA-SYNEPHRINE DRIP REMAINS AT 300 MCG/MIN. WILL CONTINUE TO MONITOR.
--- NOTE | 2019-02-01 13:11 | NUR ---
UNABLE TO OBTAIN NIBP. LEVOPHED TITRATED UP TO 30 MCG/MIN. CAROTID PULSE PRESENT VIA DOPPLER. WILL CONTINUE TO MONITOR.
--- NOTE | 2019-02-01 13:17 | NUR ---
STILL UNABLE TO OBTAIN NIBP. VASOPRESSIN RE-STARTED AT 0.04 U/MIN. LEVOPHED AND MORAIMA-SYNEPHRINE DRIP REMAIN INFUSING AT MAX ORDER PER ORDER. WILL CONTINUE TO MONITOR.
--- NOTE | 2019-02-01 14:14 | NUR ---
DR. GRUBER AT BEDSIDE TO ASSESS PATIENT. UPDATES PROVIDED AND POC DISCUSSED. PATIENT NOTED TO HAVE SOME EMESIS NOTED IN MOUTH AND DRAINING ON TO NECK AREA. PATIENT CLEANED UP AND TUBE FEEDINGS TITRATED OFF AT THIS TIME. WILL CONTINUE TO MONITOR.
--- NOTE | 2019-02-01 14:21 | NUR ---
NIBP 116/58, MAP 81. VASOPRESSIN TITRATED DOWN TO 0.02 U/HR. LEVOPHED AND MORAIMA-SYNEPHRINE REMAIN INFUSING AT THE MAX DOSE PER ORDER. WILL CONTINUE TO MONITOR.
--- NOTE | 2019-02-01 15:49 | NUR ---
NIBP 89/57, MAP 57. VASOPRESSING DRIP TITRATED UP TO 0.03 U/MIN. LEVOPHED AND MORAIMA-SYNEPHRINE DRIP REMAIN INFUSING AT MAX DOSE PER ORDER. WILL CONTINUE TO MONITOR.
--- NOTE | 2019-02-01 17:55 | NUR ---
RT PORSHA AT BEDSIDE AND TITRATED FI02 TO 70%. WILL CONTINUE TO MONITOR.
--- NOTE | 2019-02-01 20:35 | NUR ---
1999- PT HR SLOWED DOWN TO BIGEMMINY IN THE 60'S WITH A DOPPLE PULSE OF 30 AT THE CAROTID. PT TURNED TO PUT BACK BOARD UNDER HIM AND STARTED VOMITING BLOODY CURRDLED TUBE FEEDING. 2019- PULSE WAS LOST AND CODE CALLED . DR EDDY RESPONDED FROM THE ER AND THE PT RECEIVED COMPRESSIONS AND 3 ROUNDS OF EPI IV AND HR OF 70 RESTABLISHED @ 2029. RN CALLED GLORIA TO RETURN TO BEDSIDE @ 2029
--- NOTE | 2019-02-01 23:13 | NUR ---
2220 PT PEA, CODE CALLED, AT BEDSIDE, CPR STARTED, DR SADLER TO BEDSIDE, PT RECEIVED 3 ROUNDS OF EPI PER PROTOCOL, PT FAIL TO ESTABISH VIABLE RYTHUM. CODE ENDED AT [address] SADLER. NO SPONTANEOUS BREATHING, NO SPONTANEOUS HEART ACTION. DONOR NOTIFIED, MEMORY CARE PROGRAM DIRECTOR NOTIFIED 2329 SISTER TING CONTACTED BY PHONE AND INFORMED OF PATIENT'S DEMISE
== END 2019-02-01 22:33 | disposition expired | DRG 720 ==
LOC: ED 00:39 → DU 06:18 → IC 06:18 → DU 01-26 18:52 → IC 01-30 17:04
PROVIDERS: Emergency Medicine; Family Medicine; Internal Medicine Gastroenterology; Internal Medicine Nephrology; ADMIT Internal Medicine
PROC: 05HN33Z Insertion of Infusion Device into Left Internal Jugular Vein, Percutaneous Approach (ICD-10-PCS; principal; 2019-01-24)
PROC: B544ZZA Ultrasonography of Left Jugular Veins, Guidance (ICD-10-PCS; 2019-01-24)
PROC: 0F9430Z Drainage of Gallbladder with Drainage Device, Percutaneous Approach (ICD-10-PCS; 2019-01-25)
PROC: 5A1D70Z Performance of Urinary Filtration, Intermittent, Less than 6 Hours Per Day (ICD-10-PCS; 2019-01-25)
PROC: 5A1D70Z Performance of Urinary Filtration, Intermittent, Less than 6 Hours Per Day (ICD-10-PCS; 2019-01-27)
PROC: 0FP4X0Z Removal of Drainage Device from Gallbladder, External Approach (ICD-10-PCS; 2019-01-29)
PROC: 0FC98ZZ Extirpation of Matter from Common Bile Duct, Via Natural or Artificial Opening Endoscopic (ICD-10-PCS; 2019-01-29)
PROC: BF101ZZ Fluoroscopy of Bile Ducts using Low Osmolar Contrast (ICD-10-PCS; 2019-01-29)
PROC: 30233N1 Transfusion of Nonautologous Red Blood Cells into Peripheral Vein, Percutaneous Approach (ICD-10-PCS; 2019-01-30)
PROC: 5A1D70Z Performance of Urinary Filtration, Intermittent, Less than 6 Hours Per Day (ICD-10-PCS; 2019-01-30)
PROC: 5A1945Z Respiratory Ventilation, 24-96 Consecutive Hours (ICD-10-PCS; 2019-01-31)
PROC: 30233K1 Transfusion of Nonautologous Frozen Plasma into Peripheral Vein, Percutaneous Approach (ICD-10-PCS; 2019-01-31)
PROC: 30233R1 Transfusion of Nonautologous Platelets into Peripheral Vein, Percutaneous Approach (ICD-10-PCS; 2019-01-31)
PROC: 5A1D70Z Performance of Urinary Filtration, Intermittent, Less than 6 Hours Per Day (ICD-10-PCS; 2019-01-31)
PROC: 0BH17EZ Insertion of Endotracheal Airway into Trachea, Via Natural or Artificial Opening (ICD-10-PCS; 2019-01-31)
PROC: 5A12012 Performance of Cardiac Output, Single, Manual (ICD-10-PCS; 2019-02-01)
PROC: 5A1D70Z Performance of Urinary Filtration, Intermittent, Less than 6 Hours Per Day (ICD-10-PCS; 2019-02-01)
DX: A41.9 Sepsis, unspecified organism (principal); K76.7 Hepatorenal syndrome; I21.4 Non-ST elevation (NSTEMI) myocardial infarction; E43 Unspecified severe protein-calorie malnutrition; R65.21 Severe sepsis with septic shock; G93.41 Metabolic encephalopathy; K83.09 Other cholangitis; I13.2 Hypertensive heart and chronic kidney disease with heart failure and with stage 5 chronic kidney disease, or end stage renal disease; I46.9 Cardiac arrest, cause unspecified; D68.9 Coagulation defect, unspecified; E11.22 Type 2 diabetes mellitus with diabetic chronic kidney disease; E11.51 Type 2 diabetes mellitus with diabetic peripheral angiopathy without gangrene; I48.91 Unspecified atrial fibrillation; E11.65 Type 2 diabetes mellitus with hyperglycemia; I69.351 Hemiplegia and hemiparesis following cerebral infarction affecting right dominant side; E87.6 Hypokalemia; N18.6 End stage renal disease; N39.0 Urinary tract infection, site not specified; Z93.1 Gastrostomy status; Z99.2 Dependence on renal dialysis; Z68.21 Body mass index [BMI] 21.0-21.9, adult; Z89.512 Acquired absence of left leg below knee; Z89.511 Acquired absence of right leg below knee; Z93.6 Other artificial openings of urinary tract status; Z88.8 Allergy status to other drugs, medicaments and biological substances; E83.51 Hypocalcemia; H70.90 Unspecified mastoiditis, unspecified ear; R16.0 Hepatomegaly, not elsewhere classified; L89.90 Pressure ulcer of unspecified site, unspecified stage; E83.42 Hypomagnesemia; K52.89 Other specified noninfective gastroenteritis and colitis; I50.33 Acute on chronic diastolic (congestive) heart failure
CPT/HCPCS: 43260; 82962; 83880; 85378; 87804; 97530-GP; A4628; C1769; G0378; J0171; J0278; J0696; J1450; J1610; J2020; J2185; J2370; J2405; J2765; J3370; J3430; J3475; J3480; J3490; J7030; J7040; J7042; J7050; J7060; J7620; P9016; P9035; P9047; P9059; Q0092; Q9967